=== PATIENT | female | born 1975 | race Caucasian/White ===

== ENCOUNTER 2020-08-19 14:39 | Outpatient (CLI) | payer BC, SELFPAY ==
--- NOTE | 2020-08-19 | ECHO_ITS ---
Patient Info Name: Martha Pires Age: 44 years : 1975 Gender: Female Ht: 70 in Wt: 160 lbs BSA: 1.89 m2 HR: 60 bpm BP: 128 / 78 mmHg Heart Rhythm: Sinus Rhythm Technical Quality: Good Exam Date: 08/19/2020 3:09 PM Exam Location: [facility] Patient Status: Outpatient Admit Date: 08/19/2020 Staff Ordering Physician: RoneyJohn MD Utility Hand: Shon Gallegos RDCS Attending Provider: RoneyJohn MD Exam Type: CA echo doppler color flow Study Info Indications I34.1 - Nonrheumatic mitral (valve) prolapse Complete two-dimensional, color flow and Doppler transthoracic echocardiogram is performed. Strain analysis performed. History/Risk Factors Mitral valve prolapse. Summary 1. Left ventricular systolic function is normal, estimated at 55-60%. 2. There is no increased left ventricular wall thickness. 3. The left ventricular diastolic function is normal. 4. Global longitudinal strain is normal at -19 %. 5. There is trace mitral valve regurgitation without evidence of mitral valve prolapse. 6. There is mild tricuspid valve regurgitation. 7. Unable to estimate PA systolic pressure due to poor spectral resolution of tricuspid regurgitant jet velocity. Left Ventricle Left ventricular chamber dimension is normal. Left ventricular systolic function is normal, estimated at 55-60%. There is no increased left ventricular wall thickness. The left ventricular diastolic function is normal. Global longitudinal strain is normal at -19 %. Right Ventricle Right ventricular chamber dimension is normal. Right ventricular systolic function is normal. Left Atria Left atrial chamber dimension is normal. Right Atria Right atrial chamber dimension is normal. Aortic Valve The aortic valve is not well visualized. There is no aortic valve stenosis. There is no aortic valve regurgitation. Pulmonic Valve The pulmonic valve is not well visualized. Mitral Valve The mitral valve has normal leaflets. There is trace mitral valve regurgitation without evidence of mitral valve prolapse. Tricuspid Valve The tricuspid valve leaflets are normal. There is mild tricuspid valve regurgitation. Unable to estimate PA systolic pressure due to poor spectral resolution of tricuspid regurgitant jet velocity. Pericardium/Pleural The pericardium appears normal. There is no pericardial effusion. Inferior Vena Cava Normal inferior vena cava with >50% collapse upon inspiration consistent with normal right atrial pressure, 5 mmHg. Aorta The aortic root size at the sinus of Valsalva is normal. Left Ventricular Outflow Tract Name Value Normal LVOT 2D LVOT Diameter 2.0 cm LVOT Doppler LVOT Peak Gradient 4 mmHg LVOT Mean Gradient 2 mmHg LVOT VTI 23 cm LVOT VTI/AV VTI Ratio 0.8 LVOT Stroke Volume 73 ml LVOT CO 4.5 l/min LVOT CI 2.4 l/min/m2 Mitral Valve --
== END 2020-08-19 14:40 | disposition home or self-care (01) ==
PROVIDERS: PCP Internal Medicine; Visit Provider Internal Medicine
DX: I34.1 Nonrheumatic mitral (valve) prolapse (principal)
CPT/HCPCS: 93306

== ENCOUNTER 2024-04-17 08:42 | Outpatient (CLI) | payer BC, SELFPAY ==
--- NOTE | 2024-04-17 | ECHO_ITS ---
Patient Info Name: Martha Pires Age: 48 years : 1975 Gender: Female Ht: 70 in Wt: 170 lbs BSA: 1.96 m2 HR: 54 bpm BP: 131 / 82 mmHg Heart Rhythm: Sinus Rhythm Technical Quality: Fair Exam Date: 04/17/2024 8:59 AM Exam Location: [facility] Patient Status: Outpatient Admit Date: 04/17/2024 Staff Ordering Physician: RoneyJohn MD Power Plant Operator Apprentice: Elvira Ortiz JOSEPH Attending Provider: CarloJohn MD Exam Type: CA echo doppler color flow Study Info Indications I34.1 - Nonrheumatic mitral (valve) prolapse Complete two-dimensional, color flow and Doppler transthoracic echocardiogram is performed. Summary 1. Complete two-dimensional, color flow and Doppler transthoracic echocardiogram is performed. 2. Left ventricular chamber dimension is normal. 3. Left ventricular systolic function is normal, estimated at 60-65%. 4. Right ventricular systolic function is normal. 5. There is mild tricuspid valve regurgitation. Left Ventricle Left ventricular chamber dimension is normal. Left ventricular systolic function is normal, estimated at 60-65%. There is no increased left ventricular wall thickness. The left ventricular diastolic function is normal. Right Ventricle Right ventricular chamber dimension is normal. Right ventricular systolic function is normal. Left Atria Left atrial chamber dimension is normal. Right Atria Right atrial chamber dimension is normal. Atrial Septum Intact interatrial septum visualized by color flow imaging. Aortic Valve The aortic valve is trileaflet. There is no aortic valve stenosis. There is no aortic valve regurgitation. Pulmonic Valve The pulmonic valve is not well visualized. There is trace pulmonic regurgitation. Mitral Valve The mitral valve has normal leaflets. There is trace mitral valve regurgitation. Tricuspid Valve There is mild tricuspid valve regurgitation. Pericardium/Pleural There is no pericardial effusion. Inferior Vena Cava Normal inferior vena cava with >50% collapse upon inspiration consistent with normal right atrial pressure, 3 mmHg. Aorta The aortic root size at the sinus of Valsalva is normal. Left Ventricular Outflow Tract Name Value Normal LVOT 2D LVOT Diameter 2.1 cm LVOT Doppler LVOT Peak Gradient 5 mmHg LVOT Mean Gradient 2 mmHg LVOT VTI 25 cm LVOT VTI/AV VTI Ratio 0.8 LVOT Stroke Volume 81 ml LVOT CO 4.4 l/min LVOT CI 2.3 l/min/m2 Pulmonic Valve Name Value Normal RVOT Doppler RVOT Peak Gradient 4 mmHg PV Doppler PV Peak Gradient 3 mmHg Mitral Valve Name
== END 2024-04-17 08:43 | disposition home or self-care (01) ==
LOC: ANHCARD 08:43
PROVIDERS: PCP Internal Medicine; Visit Provider Internal Medicine
DX: I34.1 Nonrheumatic mitral (valve) prolapse (principal); I36.1 Nonrheumatic tricuspid (valve) insufficiency
CPT/HCPCS: 93306

== ENCOUNTER 2025-09-10 07:23 | Outpatient (CLI) | payer BC, SELFPAY ==
--- NOTE | 2025-09-10 | ECHO_ITS ---
Patient Info Name: Martha Pires Age: 49 years : 1975 Gender: Female Ht: 70 in Wt: 173 lbs BSA: 1.98 m2 HR: 58 bpm BP: 117 / 82 mmHg Technical Quality: Good Exam Date: 09/10/2025 8:19 AM Patient Status: O Admit Date: 09/10/2025 Exam Type: CA echo doppler color flow Complete two-dimensional, color flow and Doppler transthoracic echocardiogram is performed. Mechanical System Technician: Osiris Luna Attending Provider: John Sim Summary 1. Complete two-dimensional, color flow and Doppler transthoracic echocardiogram is performed. 2. Left ventricular systolic function is normal, estimated at 60-65. 3. The left ventricular diastolic function is normal. 4. There is no mitral valve regurgitation. 5. The mitral valve has normal leaflets. 6. There is mild tricuspid valve regurgitation. 7. No pulmonary hypertension, estimated pulmonary arterial systolic pressure is 20 mmHg. Left Ventricle Left ventricular chamber dimension is normal. Left ventricular systolic function is normal, estimated at 60-65. There is no increased left ventricular wall thickness. Left ventricular septal wall motion is normal. The left ventricular diastolic function is normal. Right Ventricle Right ventricular chamber dimension is normal. Right ventricular systolic function is normal. Left Atria Left atrial chamber dimension is normal. Right Atria Right atrial chamber dimension is normal. Aortic Valve The aortic valve is trileaflet. There is no aortic valve sclerosis. There is no aortic valve stenosis. There is no aortic valve regurgitation. Pulmonic Valve The pulmonic valve is normal. There is no pulmonic valve stenosis. There is no pulmonic regurgitation. Mitral Valve The mitral valve has normal leaflets. There is no mitral valve stenosis. There is no mitral valve regurgitation. Tricuspid Valve The tricuspid valve leaflets are normal. There is no significant tricuspid valve stenosis. There is mild tricuspid valve regurgitation. No pulmonary hypertension, estimated pulmonary arterial systolic pressure is 20 mmHg. Pericardium/Pleural The pericardium appears normal. There is no pericardial effusion. Inferior Vena Cava Normal inferior vena cava with >50% collapse upon inspiration consistent with normal right atrial pressure, 5 mmHg. Aorta The aortic root size at the sinus of Valsalva is normal. The prox ascending aorta size is normal. Left Ventricular Outflow Tract Name Value Normal LVOT 2D LVOT Diameter 2.0 cm LVOT Doppler LVOT Peak Velocity 116 cm/s LVOT Peak Gradient 5 mmHg LVOT Mean Gradient 2 mmHg LVOT VTI 26 cm LVOT Stroke Volume 85 ml LVOT CO 4.9 l/min LVOT CI 2.5 l/min/m2 Pulmonic Valve Name Value Normal RVOT Doppler RVOT Peak Velocity 75 cm/s RVOT Peak Gradient 2 mmHg PV Doppler PV Peak Velocity 94 cm/s PV Peak Gradient 4 mmHg Mitral Valve Name Value Normal MV Diastolic Function MV E Peak Velocity 96 cm/s MV A Peak Velocity 67 cm/s MV E/A 1.4 MV Decel Time (PW) 230 ms MV Annular TDI MV E/e' (Septal) 13.7 MV E/e' (Lateral) 6.8 MV E/e' (Average) 10.2 Tricuspid Valve Name Value Normal TV Regurgitation Doppler TR Peak Velocity 192 cm/s TR Peak Gradient 15 mmHg Estimated PAP/RSVP RA Pressure 5 mmHg <=5 PA Systolic Pressure 20 mmHg <36 RV Systolic Pressure 20 mmHg <36 Aortic Valve Name Value Normal AV Doppler AV Peak Velocity 178 cm/s AV Peak Gradient 13 mmHg AV Area (Cont Eq Yoel) 2.1 cm2 AV DI (Yoel) 0.65 AV Regurgitation 2D LVOT Area 3.2 cm2 Ventricles Name Value Normal LV Dimensions 2D/MM IVS Diastolic Thickness (2D) 0.7 cm 0.6-1.0 LVID Diastole (2D) 4.7 cm 3.8-5.2 LVIW Diastolic Thickness (2D) 0.9 cm 0.6-0.9 LVID Systole (2D) 2.9 cm 2.2-3.5 LVOT Diameter 2.0 cm LV Mass (2D Cubed) 127.40 g 67.00-162.00 LV Mass Index (2D Cubed) 64 g/m2 43-95 Relative Wall Thickness (2D) 0.39 <=0.42 LV Fractional Shortening/Ejection Fraction 2D/MM LV Fractional Shortening (2D) 38 % 27-45 LV EF (2D Teichholz) 68 % LV Diastolic Volume (4C MOD) 110 ml LV EF (4C MOD) 64 % LV Diastolic Volume (2C MOD) 102 ml LV EF (2C MOD) 62 % LV Diastolic Volume (BP MOD) 106 ml 46-106 LV Diastolic Volume Index (BP MOD) 54 ml/m2 29-61 LV Systolic Volume (BP MOD) 40 ml 14-42 LV Systolic Volume Index (BP MOD) 20 ml/m2 8-24 LV EF (BP MOD) 62 % 54-74 LV Diastolic Length (4C) 8.3 cm LV Systolic Length (4C) 7.2 cm LV Stroke Volume (4C MOD) 70 ml Atria Name Value Normal LA Dimensions LA Volume (4C A-L) 33 ml LA Volume (BP A-L) 47 ml RA Dimensions RA Systolic Major [place] Length (4C) 5.2 cm 2.2-2.8 RA Area (4C) 16.3 cm2 <=18.0 Report Signatures
--- OUTSIDE RECORDS SUMMARY | 2025-09-10 07:27 | XMS_ITS | Data Portability ---
Author Organization [place] [facility], Main Office Address [address] [place] [address] Assessment Encounter Date Assessment Date Assessment LastModified by Organization Details LastModified Time 08/02/2023 08/02/2023 Healthy lifestyle choices colon cancer screening Cologuard was done 2021 blood work forms to be filled out for her employment immunizations and screenings have been discussed in order were agreeable and patient appropriate follow-up 1 year [email or web address] Not available 08/03/2023 14:07:23 Plan of Treatment Reminders Order Date Submit Date Provider Last Modified By Organization Details Last Modified Time Details Appointments None recorded . Lab CBC w/ auto diff 023 08/02/20 23 GRECIA Not available 3 13:14:22 CMP, serum or plasma 023 08/02/20 23 GRECIA Not available 3 13:23:33 lipid panel, serum 023 08/02/20 23 GRECIA Not available 3 13:23:38 HbA1c (hemoglo bin A1c), blood 023 08/02/20 23 [email or web address] Not available 4 18:35:49 Referral None recorded . Procedures None recorded . Surgeries None recorded . Imaging None recorded . Medication Orders None recorded . Patient TargetsNo targets recorded. Patient InstructionsNo instructions recorded. Reason for Referral None Reported. Results Created Date Observation Date Name Description Value Unit Range Abnormal Flag Note LastModifiedBy Organization Detail LastModifiedTime 08/06/20 22 08/06/2022 COMPR EHENS RAPHAEL METAB OLIC PANEL sodium 140 mmol/ L 137-14 5 Not Available [facility] (Lab) [address] [place], [address], 08/06/2022 13:09:52 10/28/20 22 08/06/2022 COMPR EHENS RAPHAEL METAB OLIC PANEL potassium 4.1 mmol/ L 3.5-5. 1 Not Available [facility] (Lab) [address] [place], [address], 08/06/2022 13:09:52 08/06/20 22 08/06/2022 COMPR EHENS RAPHAEL METAB OLIC PANEL chloride 104 mmol/ L 98-107 Not Available [facility] (Lab) [address] [place], [address], 08/06/2022 13:09:52 08/06/2008/06/2022 COMPR EHENS RAPHAEL METAB OLIC PANEL carbon dioxide 26 mmol/ L 22-30 Not Available [facility] (Lab) [address] [place], [address], 08/06/2022 13:09:52 08/06/2008/06/2022 COMPR EHENS RAPHAEL METAB OLIC PANEL anion gap 14.1 mmol/ L 14-22 Not Available [facility] (Lab) [address] [place], [address], 08/06/2022 13:09:52 08/06/20 22 08/06/2022 COMPR EHENS RAPHAEL METAB OLIC PANEL glucose 89 mg/dL 70-99 Not Available [facility] (Lab) [address] [place], [address], 08/06/2022 13:09:52 08/06/20 22 08/06/2022 COMPR EHENS RAPHAEL METAB OLIC PANEL BUN 14 mg/dL 8-19 Not Available [facility] (Lab) [address] [place], [address], 08/06/2022 13:09:52 08/06/20 22 08/06/2022 COMPR EHENS RAPHAEL METAB OLIC PANEL creatinine 0.79 mg/dL 0.66-1 .25 Not Available [facility] (Lab) [address] [place], [address], 08/06/2022 13:09:52 08/06/2008/06/2022 COMPR EHENS RAPHAEL METAB OLIC PANEL GFR >60 Refer ence Range : Duarte ge GFR Healt hy Adult : >60 mL/mi n/1.7 3 m2 Chron ic Kidne y Disea se: 15-60 mL/mi n/1.7 3 m2 Kidne y Failu re: <15/m L/min /1.73 m2 www.n iddk. nih.g ov The MDRD study equat ion has not been valid ated in child yordy <18 years of age; pregn ant women ; the elder ly >85 years of age; or in some racia l or ethni c subgr oups, such as Allan nics. Outsi de the valid ated dima eters , estim ated GFR is less accur ate, requi ring clini siri judgm ent on a case- by-ca se basis . Clini siri inter preta tion for other races and ages must be made by the clini geremias. The MDRD study equat ion has not been valid ated for the evalu ation of serum creat inine relat ed to nutri nilton l statu s or medic ation usage . For perso ns <18 years of age, a pedia tric GFR calcu lator is avail able on the [facility] websi te: https ://milton murray.reilly rg/pr ofess ional s/kdo qi/gf r_cal culat or Not Available [facility] (Lab) [address] [place], [address], 08/06/2022 13:09:52 08/06/20 22 08/06/2022 COMPR EHENS RAPHAEL METAB OLIC PANEL alkaline phosphatase 45 U/L 38-126 Not Available [facility] (Lab) [address] [place], [address], 08/06/2022 13:09:52 08/06/20 22 08/06/2022 COMPR EHENS RAPHAEL METAB OLIC PANEL alanine aminotransfe rase 11 U/L 0-35 Not Available [facility] (Lab) [address] [place], [address], 08/06/2022 13:09:52 08/06/20 22 08/06/2022 COMPR EHENS RAPHAEL METAB OLIC PANEL aspartate aminotransfe rase 20 U/L 15-37 Not Available [facility] (Lab) [address] [place], [address], 08/06/2022 13:09:52 08/06/20 22 08/06/2022 COMPR EHENS RAPHAEL METAB OLIC PANEL bilirubin, total 0.80 mg/dL 0.20-1 .30 Not Available [facility] (Lab) [address] [place], [address], 08/06/2022 13:09:52 08/06/2008/06/2022 COMPR EHENS RAPHAEL METAB OLIC PANEL calcium 9.4 mg/dL 8.4-10 .2 Not Available [facility] (Lab) [address] [place], [address], 08/06/2022 13:09:52 08/06/20 22 08/06/2022 COMPR EHENS RAPHAEL METAB OLIC PANEL total protein 7.3 g/dL 6.3-8. 2 Not Available [facility] (Lab) [address] [place], [address], 08/06/2022 13:09:52 08/06/20 22 08/06/2022 COMPR EHENS RAPHAEL METAB OLIC PANEL albumin 4.4 g/dL 3.4-5. 0 Not Available [facility] (Lab) [address] [place], [address], 08/06/2022 13:09:52 08/06/20 22 08/06/2022 COMPR EHENS RAPHAEL METAB OLIC PANEL globulin 2.9 g/dL 2.6-4. 2 Not Available [facility] (Lab) [address] [place], [address], 08/06/2022 13:09:52 08/06/2008/06/2022 COMPR EHENS RAPHAEL METAB OLIC PANEL A/G ratio 1.5 ratio 1.0-2. 0 Not Available [facility] (Lab) [address] [place], [address], 08/06/2022 13:09:52 08/06/2008/06/2022 LIPID PANEL cholesterol 188 mg/dL 140-19 9 NIH ROOPA NSUS RECOM MENDA TION FOR RACHELL STERO L: ADULT CHILD LOW RISK: <200 <170 BORDE RLINE : <200- 239 ----- HIGH RISK: >240 >200 Not Available [facility] (Lab) [address] [place], [address], 08/06/2022 13:09:46 08/06/20 22 08/06/2022 LIPID PANEL triglyceride s 77 mg/dL 0-150 NIH ROOPA NSUS REPOR T RECOM MENDA TION FOR TRIGL YCERI LARISSA: ADULT CHILD LOW RISK: <150 ----- BODER LINE: 150-1 99 ----- HIGH RISK: >200 ----- Not Available [facility] (Lab) [address] [place], [address], 08/06/2022 13:09:46 08/06/20 22 08/06/2022 LIPID PANEL HDL cholesterol 84 mg/dL 40- Not Available [facility] (Lab) [address] [place], [address], 08/06/2022 13:09:46 08/06/20 22 08/06/2022 LIPID PANEL LDL cholesterol, calculated 89 mg/dL 0-130 NIH ROOPA NSUS REPOR T RECOM MENDA TIONS FOR LDL: ADULT CHILD LOW RISK <130 <110 (OPTI MAL LDL) <100 ----- BORDE RLINE : 130-1 59 ----- HIGH RISK: >160 >130 A TRIGL YCERI DE RESUL T >400 INVAL IDATE S THE CALCU LATIO N FOR LDL FRACT IONAT ION - THE LDL RESUL T WILL NOT BE REPOR CHETNA. Not Available [facility] (Lab) [address] [place], [address], 08/06/2022 13:09:46 08/06/2008/06/2022 CBC/C OMPLE TE BLD COUNT W/DIF F red blood cells 4.18 x10'6 /uL 3.80-5 .20 Not Available [facility] (Lab) [address] [place], [address], 08/06/2022 13:00:41 08/06/20 22 08/06/2022 CBC/C OMPLE TE BLD COUNT W/DIF F hemoglobin 12.7 g/dL 12.0-1 5.6 Not Available [facility] (Lab) [address] [place], [address], 08/06/2022 13:00:41 08/06/20 22 08/06/2022 CBC/C OMPLE TE BLD COUNT W/DIF F hematocrit 39.7 % 35.7-4 5.7 Not Available [facility] (Lab) [address] [place], [address], 08/06/2022 13:00:41 08/06/2008/06/2022 CBC/C OMPLE TE BLD COUNT W/DIF F mean red cell volume 95.0 fL 82.0-9 9.0 Not Available [facility] (Lab) [address] [place], [address], 08/06/2022 13:00:41 08/06/20 22 08/06/2022 CBC/C OMPLE TE BLD COUNT W/DIF F mean red cell hemoglobin 30.4 pg 27.0-3 3.0 Not Available [facility] (Lab) [address] [place], [address], 08/06/2022 13:00:41 08/06/20 22 08/06/2022 CBC/C OMPLE TE BLD COUNT W/DIF F mean RBC HGB concentratio n 32.0 g/dL 31.0-3 6.0 Not Available [facility] (Lab) [address] [place], [address], 08/06/2022 13:00:41 08/06/20 22 08/06/2022 CBC/C OMPLE TE BLD COUNT W/DIF F red cell distribution width 12.0 % 11.8-1 5.5 Not Available [facility] (Lab) [address] [place], [address], 08/06/2022 13:00:41 08/06/20 22 08/06/2022 CBC/C OMPLE TE BLD COUNT W/DIF F platelets 282 x10'3 /uL 150-40 0 Not Available [facility] (Lab) [address] [place], [address], 08/06/2022 13:00:41 08/06/20 22 08/06/2022 CBC/C OMPLE TE BLD COUNT W/DIF F mean platelet volume 10.7 fL 9.0-12 .4 Not Available [facility] (Lab) [address] [place], [address], 08/06/2022 13:00:41 08/06/20 22 08/06/2022 CBC/C OMPLE TE BLD COUNT W/DIF F neutrophils 59.6 % 39.0-7 2.0 Not Available [facility] (Lab) [address] [place], [address], 08/06/2022 13:00:41 08/06/20 22 08/06/2022 CBC/C OMPLE TE BLD COUNT W/DIF F lymphocytes 26.8 % 16.0-4 7.0 Not Available [facility] (Lab) [address] [place], [address], 08/06/2022 13:00:41 08/06/20 22 08/06/2022 CBC/C OMPLE TE BLD COUNT W/DIF F monocytes 11.2 % 5.0-12 .0 Not Available [facility] (Lab) [address] [place], [address], 08/06/2022 13:00:41 08/06/20 22 08/06/2022 CBC/C OMPLE TE BLD COUNT W/DIF F eosinophils 1.2 % 1.0-7. 0 Not Available [facility] (Lab) [address] [place], [address], 08/06/2022 13:00:41 08/06/20 22 08/06/2022 CBC/C OMPLE TE BLD COUNT W/DIF F basophils 0.8 % 0.0-2. 0 Not Available [facility] (Lab) [address] [place], [address], 08/06/2022 13:00:41 08/06/20 22 08/06/2022 CBC/C OMPLE TE BLD COUNT W/DIF F immature granulocytes 0.4 % 0.00-0 .50 Not Available [facility] (Lab) [address] [place], [address], 08/06/2022 13:00:41 08/06/20 22 08/06/2022 CBC/C OMPLE TE BLD COUNT W/DIF F neutrophils, absolute count 2.87 x10'3 /uL 1.5-8. 0 Not Available [facility] (Lab) [address] [place], [address], 08/06/2022 13:00:41 08/06/20 22 08/06/2022 CBC/C OMPLE TE BLD COUNT W/DIF F lymphocytes, absolute count 1.29 x10'3 /uL 1.07-3 .43 Not Available [facility] (Lab) [address] [place], [address], 08/06/2022 13:00:41 08/06/2008/06/2022 CBC/C OMPLE TE BLD COUNT W/DIF F monocytes, absolute count 0.54 x10'3 /uL 0.29-0 .99 Not Available [facility] (Lab) [address] [place], [address], 08/06/2022 13:00:41 08/06/20 22 08/06/2022 CBC/C OMPLE TE BLD COUNT W/DIF F eosinophils, absolute count 0.06 x10'3 /uL 0.02-0 .53 Not Available [facility] (Lab) [address] [place], [address], 08/06/2022 13:00:41 08/06/20 22 08/06/2022 CBC/C OMPLE TE BLD COUNT W/DIF F basophils, absolute count 0.04 x10'3 /uL 0.01-0 .08 Not Available [facility] (Lab) [address] [place], [address], 08/06/2022 13:00:41 08/06/20 22 08/06/2022 CBC/C OMPLE TE BLD COUNT W/DIF F immature granulocytes ,absolute 0.02 x10'3 /uL 0.00-0 .05 Not Available [facility] (Lab) [address] [place], [address], 08/06/2022 13:00:41 08/06/20 22 08/06/2022 CBC/C OMPLE TE BLD COUNT W/DIF F nucleated red blood cells 0.0 % -0 Not Available [facility] (Lab) [address] [place], [address], 08/06/2022 13:00:41 08/06/20 22 08/06/2022 CBC/C OMPLE TE BLD COUNT W/DIF F NRBC# 0.00 x10'3 /uL Not Available [facility] (Lab) [address] [place], [address], 08/06/2022 13:00:41 08/06/20 22 08/06/2022 CBC/C OMPLE TE BLD COUNT W/DIF F white blood cells 4.8 x10'3 /uL 4.2-10 .8 Not Available [facility] (Lab) [address] [place], [address], 08/06/2022 13:00:41 08/19/20 22 08/19/2022 COLOG UARD cologuard result reportable negati ve negati ve NEGAT RAPHAEL TEST RESUL T. A negat raphael Colog uard resul t indic ates a low likel ihood that a color ectal cance r (CRC) or advan sai adeno ma (sivan omato us polyp s with more advan sai pre-m align ant featu res) is prese nt. The [facility] e that a perso n with a negat raphael Colog uard test has a color ectal cance r is less than 1 in 1500 (nega tive predi ctive value >99.9 %) or has an advan sai adeno ma is less than 5.3% (nega tive predi ctive value 94.7% ). These data are based on a prosp ectiv e cross -sect ional study of 0 indiv idual s at [facility] risk for color ectal cance r who were scree lobo with both Colog uard and colon oscop y. (All mckinley TAnnamarie et al, N Engl J Med 2014; 370(1 4):12 86-12 97) The emily l value (refe rence range ) for this assay is negat raphael. COLOG UARD RE-SC REENI NG RECOM MENDA TION: Perio dic color ectal cance r scree naomy is an impor tant part of preve ntive healt hcare for asymp tomat ic indiv idual s at avera ge risk for color ectal cance r. Follo wing a negat raphael Colog uard resul t, the Ameri can Cance r Socie ty and U.S. Multi -Soci ety Task Force scree naomy guide lines recom mend a Colog uard re-sc dayne pascual inter marcia of 3 years . Refer ences : Ameri can Cance r Socie ty Guide line for Color ectal Cance r Scree naomy: https ://milton w.can cer.o rg/ca ncer/ colon -rect al-ca ncer/ detec tion- diagn osis- stagi ng/ac s-rec ommen datio ns.ht ml.; Frederic FISHER, Juan José WYNNE, Maria Del Rosario MAYER, Color ectal Cance r Scree naomy: Recom menda tions for Physi cians and Patie nts from the U.S. Multi -Soci ety Task Force on Color ectal Cance r Scree naomy , Am Paola Gastr osorio farfan y 2017; 112:1 016-1 030. TEST DESCR IPTIO N: Modale site algor ithmi c roro sis of stool DNA-b ioike woods with hemog lobin immun oassa y. Quant itati ve value s of indiv idual bioma rkers are not repor table and are not assoc iated with indiv idual bioma rker resul t refer ence range s. Colog uard is inten ded for color ectal cance r scree naomy of adult s of eithe r sex, 45 years or older , who are at [facility] for color ectal cance r (CRC) . Colog uard has been appro claudia for use by the U.S. FDA. The perfo rmanc e of Colog uard was estab lishe d in a cross secti onal study of [facility] adult s aged 50-84 . Colog uard perfo rmanc e in patie nts ages 45 to 49 years was estim ated by sub-g roup roro sis of near- age group s. Colon oscop ies perfo rmed for a posit raphael resul t may find as the most clini erika signi fican t lesio n: color ectal cance r [4.0% ], advan sai adeno ma (incl uding sessi le nitin chetna polyp s great er than or equal to 1cm diame ter) [20%] or non- advan sai adeno ma [31%] ; or no color ectal neopl moody [45%] . These estim ates are deriv ed from a prosp ectiv e cross -sect ional stefan zavalag study of 0 indiv idual s at [facility] risk for color ectal cance r who were scree lobo with both Colog uard and colon oscop y. (All Mcclellan et al, N Engl J Med 2014; 370(1 4):12 86-12 97.) Colog uard may produ ce a false negat raphael or false posit raphael resul t (no color ectal cance r or preca ncero us polyp prese nt at colon oscop y follo w up). A negat raphael Colog uard test resul t does not guara ntee the absen ce of CRC or advan sai adeno ma (pre- cance r). The curre nt Colog uard scree naomy inter marcia is every 3 years . (Amer ican Cance r Socie ty and U.S. Multi -Soci ety Task Force ). Colog uard perfo rmanc e data in a 0 patie nt pivot al study using colon oscop y as the refer ence metho d can be acces sed at the follo wing locat ion: www.e xactl abs.c om/re jarad . Addit ional descr iptio n of the Colog uard test proce ss, warni ngs and preca ution s can be found at www.c janineu flavoi.c om. Not Available [facility] [address], [place], [address], 08/25/2022 21:03:28 08/02/20 23 08/02/2023 CBC/C OMPLE TE BLD COUNT W/DIF F white blood cells 4.9 x10'3 /uL 4.2-10 .8 Not Available [facility] (Lab) [address] [place], [address], 08/02/2023 13:14:22 08/02/20 23 08/02/2023 CBC/C OMPLE TE BLD COUNT W/DIF F red blood cells 3.96 x10'6 /uL 3.80-5 .20 Not Available [facility] (Lab) [address] [place], [address], 08/02/2023 13:14:22 08/02/20 23 08/02/2023 CBC/C OMPLE TE BLD COUNT W/DIF F hemoglobin 12.5 g/dL 12.0-1 5.6 Not Available [facility] (Lab) [address] [place], [address], 08/02/2023 13:14:22 08/02/20 23 08/02/2023 CBC/C OMPLE TE BLD COUNT W/DIF F hematocrit 38.0 % 35.7-4 5.7 Not Available [facility] (Lab) [address] [place], [address], 08/02/2023 13:14:22 08/02/2008/02/2023 CBC/C OMPLE TE BLD COUNT W/DIF F mean red cell volume 96.0 fL 82.0-9 9.0 Not Available [facility] (Lab) [address] [place], [address], 08/02/2023 13:14:22 08/02/20 23 08/02/2023 CBC/C OMPLE TE BLD COUNT W/DIF F mean red cell hemoglobin 31.6 pg 27.0-3 3.0 Not Available [facility] (Lab) [address] [place], [address], 08/02/2023 13:14:22 08/02/20 23 08/02/2023 CBC/C OMPLE TE BLD COUNT W/DIF F mean RBC HGB concentratio n 32.9 g/dL 31.0-3 6.0 Not Available [facility] (Lab) [address] [place], [address], 08/02/2023 13:14:22 08/02/2008/02/2023 CBC/C OMPLE TE BLD COUNT W/DIF F red cell distribution width 12.0 % 11.8-1 5.5 Not Available [facility] (Lab) [address] [place], [address], 08/02/2023 13:14:22 08/02/20 23 08/02/2023 CBC/C OMPLE TE BLD COUNT W/DIF F platelets 278 x10'3 /uL 150-40 0 Not Available [facility] (Lab) [address] [place], [address], 08/02/2023 13:14:22 08/02/2008/02/2023 CBC/C OMPLE TE BLD COUNT W/DIF F mean platelet volume 10.7 fL 9.0-12 .4 Not Available [facility] (Lab) [address] [place], [address], 08/02/2023 13:14:22 08/02/2008/02/2023 CBC/C OMPLE TE BLD COUNT W/DIF F neutrophils 60.1 % 39.0-7 2.0 Not Available [facility] (Lab) [address] [place], [address], 08/02/2023 13:14:22 08/02/20 23 08/02/2023 CBC/C OMPLE TE BLD COUNT W/DIF F lymphocytes 28.8 % 16.0-4 7.0 Not Available [facility] (Lab) [address] [place], [address], 08/02/2023 13:14:22 08/02/20 23 08/02/2023 CBC/C OMPLE TE BLD COUNT W/DIF F monocytes 8.5 % 5.0-12 .0 Not Available [facility] (Lab) [address] [place], [address], 08/02/2023 13:14:22 08/02/2008/02/2023 CBC/C OMPLE TE BLD COUNT W/DIF F eosinophils 1.6 % 1.0-7. 0 Not Available [facility] (Lab) [address] [place], [address], 08/02/2023 13:14:22 08/02/20 23 08/02/2023 CBC/C OMPLE TE BLD COUNT W/DIF F basophils 0.8 % 0.0-2. 0 Not Available [facility] (Lab) [address] [place], [address], 08/02/2023 13:14:22 08/02/2008/02/2023 CBC/C OMPLE TE BLD COUNT W/DIF F immature granulocytes 0.2 % 0.00-0 .50 Not Available [facility] (Lab) [address] [place], [address], 08/02/2023 13:14:22 08/02/20 23 08/02/2023 CBC/C OMPLE TE BLD COUNT W/DIF F neutrophils, absolute count 2.96 x10'3 /uL 1.5-8. 0 Not Available [facility] (Lab) [address] [place], [address], 08/02/2023 13:14:22 08/02/20 23 08/02/2023 CBC/C OMPLE TE BLD COUNT W/DIF F lymphocytes, absolute count 1.42 x10'3 /uL 1.07-3 .43 Not Available [facility] (Lab) [address] [place], [address], 08/02/2023 13:14:22 08/02/20 23 08/02/2023 CBC/C OMPLE TE BLD COUNT W/DIF F monocytes, absolute count 0.42 x10'3 /uL 0.29-0 .99 Not Available [facility] (Lab) [address] [place], [address], 08/02/2023 13:14:22 08/02/20 23 08/02/2023 CBC/C OMPLE TE BLD COUNT W/DIF F eosinophils, absolute count 0.08 x10'3 /uL 0.02-0 .53 Not Available [facility] (Lab) [address] [place], [address], 08/02/2023 13:14:22 08/02/2008/02/2023 CBC/C OMPLE TE BLD COUNT W/DIF F basophils, absolute count 0.04 x10'3 /uL 0.01-0 .08 Not Available [facility] (Lab) [address] [place], [address], 08/02/2023 13:14:22 08/02/20 23 08/02/2023 CBC/C OMPLE TE BLD COUNT W/DIF F immature granulocytes ,absolute 0.01 x10'3 /uL 0.00-0 .05 Not Available [facility] (Lab) [address] [place], [address], 08/02/2023 13:14:22 08/02/20 23 08/02/2023 CBC/C OMPLE TE BLD COUNT W/DIF F nucleated red blood cells 0.0 % -0 Not Available [facility] (Lab) [address] [place], [address], 08/02/2023 13:14:22 08/02/20 23 08/02/2023 CBC/C OMPLE TE BLD COUNT W/DIF F NRBC# 0.00 x10'3 /uL Not Available [facility] (Lab) [address] [place], [address], 08/02/2023 13:14:22 08/02/20 23 08/02/2023 COMPR EHENS RAPHAEL METAB OLIC PANEL sodium 138 mmol/ L 137-14 5 Not Available [facility] (Lab) [address] [place], [address], 08/02/2023 13:23:33 08/02/20 23 08/02/2023 COMPR EHENS RAPHAEL METAB OLIC PANEL potassium 4.2 mmol/ L 3.5-5. 1 Not Available [facility] (Lab) [address] [place], [address], 08/02/2023 13:23:33 08/02/20 23 08/02/2023 COMPR EHENS RAPHAEL METAB OLIC PANEL chloride 105 mmol/ L 98-107 Not Available [facility] (Lab) [address] [place], [address], 08/02/2023 13:23:33 08/02/20 23 08/02/2023 COMPR EHENS RAPHAEL METAB OLIC PANEL carbon dioxide 27 mmol/ L 22-30 Not Available [facility] (Lab) [address] [place], [address], 08/02/2023 13:23:33 08/02/20 23 08/02/2023 COMPR EHENS RAPHAEL METAB OLIC PANEL anion gap 10.2 mmol/ L 14-22 low Not Available [facility] (Lab) [address] [place], [address], 08/02/2023 13:23:33 08/02/20 23 08/02/2023 COMPR EHENS RAPHAEL METAB OLIC PANEL glucose 95 mg/dL 70-99 Not Available [facility] (Lab) [address] [place], [address], 08/02/2023 13:23:33 08/02/20 23 08/02/2023 COMPR EHENS RAPHAEL METAB OLIC PANEL BUN 14 mg/dL 8-19 Not Available [facility] (Lab) [address] [place], [address], 08/02/2023 13:23:33 08/02/2008/02/2023 COMPR EHENS RAPHAEL METAB OLIC PANEL creatinine 0.82 mg/dL 0.66-1 .25 Not Available [facility] (Lab) [address] [place], [address], 08/02/2023 13:23:33 08/02/20 23 08/02/2023 COMPR EHENS RAPHAEL METAB OLIC PANEL GFR >60 Refer ence Range : Duarte ge GFR Healt hy Adult : >60 mL/mi n/1.7 3 m2 Chron ic Kidne y Disea se: 15-60 mL/mi n/1.7 3 m2 Kidne y Failu re: <15/m L/min /1.73 m2 www.n iddk. nih.g ov The MDRD study equat ion has not been valid ated in child yordy <18 years of age; pregn ant women ; the elder ly >85 years of age; or in some racia l or ethni c subgr oups, such as Hisnh nics. Outsi de the valid ated dima eters , estim ated GFR is less accur ate, requi ring clini siri judgm ent on a case- by-ca se basis . Clini siri inter preta tion for other races and ages must be made by the clini geremias. The MDRD study equat ion has not been valid ated for the evalu ation of serum creat inine relat ed to nutri nilton l statu s or medic ation usage . For perso ns <18 years of age, a pedia tric GFR calcu lator is avail able on the F websi te: https :[email or web address] [email or web address] harlan/pr glenness ional s/kdo qi/gf r_cal culat or Not Available [facility] (Lab) [address] [place], [address], 08/02/2023 13:23:33 08/02/2008/02/2023 COMPR EHENS RAPHAEL METAB OLIC PANEL alkaline phosphatase 39 U/L 38-126 Not Available [facility] (Lab) [address] [place], [address], 08/02/2023 13:23:33 08/02/20 23 08/02/2023 COMPR EHENS RAPHAEL METAB OLIC PANEL alanine aminotransfe rase 14 U/L 0-35 Not Available [facility] (Lab) [address] [place], [address], 08/02/2023 13:23:33 08/02/20 23 08/02/2023 COMPR EHENS RAPHAEL METAB OLIC PANEL aspartate aminotransfe rase 21 U/L 15-37 Not Available [facility] (Lab) [address] [place], [address], 08/02/2023 13:23:33 08/02/20 23 08/02/2023 COMPR EHENS RAPHAEL METAB OLIC PANEL bilirubin, total 0.70 mg/dL 0.20-1 .30 Not Available [facility] (Lab) [address] [place], [address], 08/02/2023 13:23:33 08/02/20 23 08/02/2023 COMPR EHENS RAPHAEL METAB OLIC PANEL calcium 9.7 mg/dL 8.4-10 .2 Not Available [facility] (Lab) [address] [place], [address], 08/02/2023 13:23:33 08/02/20 23 08/02/2023 COMPR EHENS RAPHAEL METAB OLIC PANEL total protein 7.1 g/dL 6.3-8. 2 Not Available [facility] (Lab) [address] [place], [address], 08/02/2023 13:23:33 08/02/20 23 08/02/2023 COMPR EHENS RAPHAEL METAB OLIC PANEL albumin 4.3 g/dL 3.4-5. 0 Not Available [facility] (Lab) [address] [place], [address], 08/02/2023 13:23:33 08/02/2008/02/2023 COMPR EHENS RAPHAEL METAB OLIC PANEL globulin 2.8 g/dL 2.6-4. 2 Not Available [facility] (Lab) [address] [place], [address], 08/02/2023 13:23:33 08/02/2008/02/2023 COMPR EHENS RAPHAEL METAB OLIC PANEL A/G ratio 1.5 ratio 1.0-2. 0 Not Available [facility] (Lab) [address] [place], [address], 08/02/2023 13:23:33 08/02/2008/02/2023 LIPID PANEL cholesterol 180 mg/dL 140-19 9 NIH ROOPA NSUS RECOM MENDA TION FOR RACHELL STERO L: ADULT CHILD LOW RISK: <200 <170 BORDE RLINE : <200- 239 ----- HIGH RISK: >240 >200 Not Available [facility] (Lab) [address] [place], [address], 08/02/2023 13:23:38 08/02/2008/02/2023 LIPID PANEL triglyceride s 72 mg/dL 0-150 NIH ROOPA NSUS REPOR T RECOM MENDA TION FOR TRIGL YCERI LARISSA: ADULT CHILD LOW RISK: <150 ----- BODER LINE: 150-1 99 ----- HIGH RISK: >200 ----- Not Available [facility] (Lab) [address] [place], [address], 08/02/2023 13:23:38 08/02/2008/02/2023 LIPID PANEL HDL cholesterol 78 mg/dL 40- Not Available [facility] (Lab) [address] [place], [address], 08/02/2023 13:23:38 08/02/20 23 08/02/2023 LIPID PANEL LDL cholesterol, calculated 88 mg/dL 0-130 NIH ROOPA NSUS REPOR T RECOM MENDA TIONS FOR LDL: ADULT CHILD LOW RISK <130 <110 (OPTI MAL LDL) <100 ----- BORDE RLINE : 130-1 59 ----- HIGH RISK: >160 >130 A TRIGL YCERI DE RESUL T >400 INVAL IDATE S THE CALCU LATIO N FOR LDL FRACT IONAT ION - THE LDL RESUL T WILL NOT BE REPOR CHETNA. Not Available [facility] (Lab) [address] [place], [address], 08/02/2023 13:23:38 08/02/2008/02/2023 HEMOG LOBIN A1C HA1C 5.1 % 4.0-6. 0 Diabe gabrielle Scree naomy Crite giovani: <5.7% Consi stent with absen ce of diabe gabrielle 5.7-6 .4% Consi stent with incre ased risk for diabe gabrielle (pred iabet es) >OR=6 .5% Consi stent with diabe gabrielle REFER ENCE: Diabe gabrielle Care 2016, 39([place] ppl.1 ):s13 -s22 Not Available [facility] (Lab) [address] [place], [address], 08/02/2023 15:06:07 Result Notes None recorded. 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 Medical Equipment None Reported. Allergies Allergen ID Allergen Name Allergen Category Reaction Reaction Severity Criticality Documentation Date Start Date Code Code System Note Provider Name and Address Organization Details Recorded Time 15866 Substance with sulfonami de structure and antibacte rial mechanism of action (substanc e) medicatio n Not available Not available Not available 12/08/2022 03394 8003 SNOMED Not Available [facility] 3 22:24:42 Medications Name Sig Start Date Stop Date Status Note LastModified by Organization Details LastModified Time amoxicillin 875 mg tablet 2019 completed Not Available Not Available Not Available Vitamin C 022 2022 completed Not Available Not Available Not Available Vitals Date Recorded Body height Body mass index (BMI) Body weight Body temperature Heart rate Systolic And Diastolic Provider Name and Address Organization Details Last Updated DateTime 3 177.8 cm 24.1 kg/m2 93201.5 2 g 98.1 [degF] 62 /min 104/68 mm[Hg] Teresa bean RN [place] [employer] [facility] 3 10:42:16 Date Recorded Body mass index (BMI) Body height Heart rate Body temperature Body weight Systolic And Diastolic Provider Name and Address Organization Details Last Updated DateTime 2 23.8 kg/m2 177.8 cm 65 /min 98.4 [degF] 65785.3 3 g 118/76 mm[Hg] Not Available [facility] 3 22:23:42 Social History Question Answer Notes LastModified by Organizat ion Details LastModified Time Tobacco Smoking Status Never Smoker Not Available [facility] 12/08/2022 22:23:01 Do You Have An Advance Directive? Yes Living Will MIGRATION. [id number] Information not available 12/08/2022 What Is Your Level Of Caffeine Consumption? Occasional MIGRATION. 29481 Information not available 12/08/2022 In The 14 Days Before Symptom Onset, Have You Had Close Contact With A Laboratory-confi rmed COVID-19 While That Case Was Ill? No MIGRATION. 14497 Information not available 12/08/2022 In The 14 Days Before Symptom Onset, Have You Had Close Contact With A Person Who Is Under Investigation For COVID-19 While That Person Was Ill? No MIGRATION. 17411 Information not available 12/08/2022 What Type Of Diet Are You Following? REGULAR MIGRATION. 76030 Information not available 12/08/2022 What Is The Highest Grade Or Level Of School You Have Completed Or The Highest Degree You Have Received? KP64152-1 MIGRATION. 01035 Information not available 12/08/2022 How Many Days Of Moderate To Strenuous Exercise, Like A Brisk Walk, Did You Do In The Last 7 Days? 5 MIGRATION. 77120 Information not available 12/08/2022 Have There Been Any Changes To Your Family Or Social Situation? No MIGRATION.90951 16554 Information not available 12/08/2022 Are There Any Guns Present In Your Home? Yes MIGRATION.35666 31098 Information not available 12/08/2022 Do You Use Insect Repellent Routinely? Yes MIGRATION.45284 69382 Information not available 12/08/2022 Where Do You Live? [facility] MIGRATION.37739 76108 Information not available 12/08/2022 Do You Have A Medical Power Of Fork Truck Operator? No MIGRATION.94838 31376 Information not available 12/08/2022 What Was The Date Of Your Most Recent Tobacco Screening? 08/02/2023 Information not available 08/02/2023 Have You Ever Been Counseled For Unhealthy Alcohol Use? No MIGRATION.23011 72340 Information not available 12/08/2022 Do You Have Any Pets? Yes MIGRATION.01543 49155 Information not available 12/08/2022 What Is Your Relationship Status? MIGRATION.66271 20400 Information not available 12/08/2022 Do You Have Smoke And Carbon Monoxide Detectors In Your Home? Yes MIGRATION.12865 15238 Information not available 12/08/2022 Are You Passively Exposed To Smoke? No MIGRATION.03335 79102 Information not available 12/08/2022 Are There Any Smokers In Your House? No MIGRATION.34834 80650 Information not available 12/08/2022 Do You Use Sunscreen Routinely? Yes MIGRATION.16236 15447 Information not available 12/08/2022 Has Tobacco Cessation Counseling Been Provided? No MIGRATION.92590 51798 Information not available 12/08/2022 Have You Recently Traveled Abroad? No MIGRATION.54487 86483 Information not available 12/08/2022 Do You Have Any Dietary Restrictions? No MIGRATION.12795 32981 Information not available 12/08/2022 Sex: Unknown Functional Status Question Answer Note LastModified by Organizat ion Details LastModified Time Do you use any illicit or recreational drugs? No MIGRATION.050526 3066 Information not available 12/08/2022 Do you or have you ever used any other forms of tobacco or nicotine? No MIGRATION.901181 6440 Information not available 12/08/2022 What is your level of alcohol consumption? Occasional MIGRATION.578030 8269 Information not available 12/08/2022 Are you currently employed? 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 Moderate MIGRATION.545164 4383 Information not available 12/08/2022 Mental Status Question Answer Note LastModified by Organizat ion Details LastModified Time Do you feel stressed (tense, restless, nervous, or anxious, or unable to sleep at night)? [id number] MIGRATION.[id number] 6 Information not available 12/08/2022 Family History Relationship Description Onset Age of this Age Resolved Age Notes LastModified by Organization Details LastModified Time Father No current problems or disability MIGRATION.[id number] Not available 12/08/2022 22:23:07 Mother No current problems or disability MIGRATION.[id number] Not available 12/08/2022 22:23:07 Medical History Condition Response HAVE YOU BEEN HOSPITALIZED OR SEEN IN [facility] IN THE PAST YEAR ? N Gynecological HistoryNo gynecological history recorded. Obstetrics History GPAL:G 0 P 0 0 0 0 Immunizations Vaccine Type Date Status Note Provider Nam e and Address Organization Details Recorded Time COVID-19, mRNA, LNP-S, PF, 30 mcg/0.3 mL dose 09/28/2021 completed Not Available [facility] 3 02:31:47 COVID-19, mRNA, LNP-S, PF, 30 mcg/0.3 mL dose 01/29/2021 completed Not Available [facility] 3 02:31:47 COVID-19, mRNA, LNP-S, PF, 30 mcg/0.3 mL dose 01/05/2021 completed Not Available [facility] 3 02:31:47 Past Encounters Encounter ID Performer Location Encounter Start Date Encounter Closed Date Diagnosis/Indication Diagnosis SNOMED-CT Code Diagnosis ICD10 Code Diagnosis IMO Codes Diagnosis Note [id number] John Sim MD [facility] [place] [address] [facility], [address] [place] [address] 08/06/2022 00:00:00 08/07/2022 14:11:32 [id number] John Sim MD [facility] [place] [facility] Med [address] [place] [address] 08/02/2023 10:34:07 08/02/2023 11:02:02 Adult health examination 062227100 Z00.00 Health Concerns Section Related Observation LastModified by Organization Detai ls LastModified Time None Recorded Concern Status LastModified by Organization Details LastModified Time None Recorded Advance Directives Directive Y: living will Payers Insurance Date Sequence Insurance Name Policy Number Policy Javed Covered Member ID Javed Member ID Guarantor Name 07/30/2023 1 [employer] [id number] Viraj Pires [id number] Martha Pires 01/18/2023 [facility] Martha Pires SELF SELF Martha Pires Notes Date Note Type Note Provider Name and Address Organization Details Recorded Time 08/02/2023 text/html annual physical very active doing well no complaints John Sim MD [address] [facility] [address], [place], [address], [facility] [place] [facility] 08/03/2023 14:07:44 OBGyn Episode No OBEpisode recorded.
--- OUTSIDE RECORDS SUMMARY | 2025-09-10 07:27 | XMS_ITS | Data Portability ---
Author Organization [facility] Address [address] [place] [address] Care Team Providers Care Call Center Dispatcher Name Role Phone JOHN SIM Primary Care Provider Unavailabl e Assessment Encounter Date Assessment Date Assessment LastModified by Organization Details LastModified Time 03/19/2024 03/19/2024 Echocardiogram blood work get old records she believes she is up-to-date with Cologuard see me in a year. She will see her loading rack supervisor for her yearly as well [email or web address] Not available 03/28/2024 16:13:00 08/26/2025 08/26/2025 We will get echo or CT and echo depending upon what she finds out specifically on what mother's having done otherwise healthy lifestyle choices discussed blood work and she will see me in a year she will get a Cologuard and she follows up with mammograms and poultry farmer care with another provider [email or web address] Not available 08/26/2025 20:52:06 Plan of Treatment Reminders Order Date Submit Date Provider Last Modified By Organization Details Last Modified Time Details Appointments ANY 15 2025 09:30A Santiago Sim MD Not available Not available Not available Lab CMP, serum or plasma 2024 025 [facility], [address], [address], [place], [address], 08/31/2025 09:09:19 lipid panel, serum 2024 025 [facility], [address], [address], [place], [address], 08/31/2025 09:09:19 CBC w/ auto diff 2024 025 [facility], [address], [address], [place], [address], 08/31/2025 09:09:20 CBC w/ auto diff 2023 024 [facility], [address] [place] [address], [address], [place], [address], 03/21/2024 16:55:15 CMP, serum or plasma 2023 024 [facility], [address] [place] [address], [address], [place], [address], 03/21/2024 16:55:15 lipid panel, serum 2023 024 [facility], [address] [place] [address], [address], [place], [address], 03/21/2024 16:55:15 Referral None recorded. Procedures None recorded. Surgeries None recorded. Imaging US, echocardi ogram 2024 025 [facility] ([facility]), [address] [place] [address], [address], 08/28/2025 09:50:39 US, echocardi ogram 2023 024 [facility] ([facility]), [address] [place] [address] [address], [place], [address], 04/17/2024 18:59:06 Medication Orders None recorded. Patient TargetsNo targets recorded. Patient Instructions Encounter Date Encounter Id Patient Instructions Last Modified By Organization Details Last Modified Time 08/26/2025 [id number] A healthy lifestyle: care instructions [email or web address] Not available 08/26/2025 15:28:54 Reason for Referral None Reported. Results Created Date Observation Date Name Description Value Unit Range Abnormal Flag Note LastModifiedBy Organization Detail LastModifiedTime 02/20/20 25 02/19/2025 pap, IG + HR HPV Pap, HPV positi ve Not Available Not Available 15:49:07 08/30/20 25 08/31/2025 LIPID PANEL cholesterol, total 184 mg/dL 100-19 9 Not Available [facility] ([facility]) [address] [place], [address], 08/31/2025 09:09:18 08/30/20 25 08/31/2025 LIPID PANEL triglyceride s 80 mg/dL 0-149 Not Available [facility] ([facility] [address] [place], [address], 08/31/2025 09:09:18 08/30/20 25 08/31/2025 LIPID PANEL HDL cholesterol 63 mg/dL >39 Not Available [facility] ([facility] [address] [place], [address], 08/31/2025 09:09:18 08/30/20 25 08/31/2025 LIPID PANEL VLDL cholesterol siri 15 mg/dL 5-40 Not Available [facility] ([facility] [address] [place], [address], 08/31/2025 09:09:18 08/30/20 25 08/31/2025 LIPID PANEL LDL chol calc ([facility]) 106 mg/dL 0-99 above high normal Not Available [facility] ([facility] [address] [place], [address], 08/31/2025 09:09:18 08/30/20 25 08/31/2025 COMP. METAB OLIC PANEL (14) glucose 88 mg/dL 70-99 Not Available [facility] ([facility] [address] [place], [address], 08/31/2025 09:09:19 08/30/20 25 08/31/2025 COMP. METAB OLIC PANEL (14) BUN 15 mg/dL 6-24 Not Available [facility] ([facility] [address] [facility] [place], [address], 08/31/2025 09:09:19 08/30/20 25 08/31/2025 COMP. METAB OLIC PANEL (14) creatinine 0.98 mg/dL 0.57-1 .00 Not Available [facility] ([facility] [address] [facility] [place], [address], 08/31/2025 09:09:19 08/30/20 25 08/31/2025 COMP. METAB OLIC PANEL (14) eGFR 70 mL/mi n/1.7 3 >59 Not Available [facility] ([facility] [place] [facility] [address] [facility] [place], [address], 08/31/2025 09:09:19 08/30/20 25 08/31/2025 COMP. METAB OLIC PANEL (14) BUN/creatini ne ratio 15 9-23 Not Available [facility] ([facility] [place] [facility] [address] [facility] [place], [address], 08/31/2025 09:09:19 08/30/20 25 08/31/2025 COMP. METAB OLIC PANEL (14) sodium 142 mmol/ L 134-14 4 Not Available [facility] ([facility] [place] [facility] [address] [facility] [place], [address], 08/31/2025 09:09:19 08/30/20 25 08/31/2025 COMP. METAB OLIC PANEL (14) potassium 4.6 mmol/ L 3.5-5. 2 Not Available [facility] ([facility] [place] [facility] [address] [facility] [place], [address], 08/31/2025 09:09:19 08/30/20 25 08/31/2025 COMP. METAB OLIC PANEL (14) chloride 105 mmol/ L 96-106 Not Available [facility] ([facility] [place] [facility] [address] [facility] [place] [place], [address], 08/31/2025 09:09:19 08/30/20 25 08/31/2025 COMP. METAB OLIC PANEL (14) carbon dioxide, total 23 mmol/ L 20-29 Not Available [facility] ([facility] [place] [facility] [address] [facility] [place], [address], 08/31/2025 09:09:19 08/30/20 25 08/31/2025 COMP. METAB OLIC PANEL (14) calcium 9.6 mg/dL 8.7-10 .2 Not Available [facility] ([facility] [place] [facility] [address] [facility] [place], [address], 08/31/2025 09:09:19 08/30/2008/31/2025 COMP. METAB OLIC PANEL (14) protein, total 7.1 g/dL 6.0-8. 5 Not Available [facility] ([facility] [place] [facility] [address] [facility] [place], [address], 08/31/2025 09:09:19 08/30/20 25 08/31/2025 COMP. METAB OLIC PANEL (14) albumin 4.4 g/dL 3.8-4. 9 Not Available [facility] ([facility] [place] [facility] [address] [facility] [place], [address], 08/31/2025 09:09:19 08/30/20 25 08/31/2025 COMP. METAB OLIC PANEL (14) globulin, total 2.7 g/dL 1.5-4. 5 Not Available [facility] ([facility] [place] [facility] [address] [facility] [place], [address], 08/31/2025 09:09:19 08/30/20 25 08/31/2025 COMP. METAB OLIC PANEL (14) bilirubin, total 0.6 mg/dL 0.0-1. 2 Not Available [facility] ([facility] [place] [place] [facility] [address] [facility] [place], [address], 08/31/2025 09:09:19 08/30/20 25 08/31/2025 COMP. METAB OLIC PANEL (14) alkaline phosphatase 43 IU/L 49-135 below low normal Not Available [facility] ([facility] [place] [facility] [address] [facility], [place], [address], 08/31/2025 09:09:19 08/30/2008/31/2025 COMP. METAB OLIC PANEL (14) AST (SGOT) 15 IU/L 0-40 Not Available [facility] ([facility] [place] [facility] [address] [facility] [place], [address], 08/31/2025 09:09:19 08/30/2008/31/2025 COMP. METAB OLIC PANEL (14) ALT (SGPT) 10 IU/L 0-32 Not Available [facility] ([facility] [place] [facility] [address] [facility], [place], [address], 08/31/2025 09:09:19 08/30/20 25 08/31/2025 CBC WITH DIFFE RENTI AL/PL ATELE T WBC 5.5 x10e3 /uL 3.4-10 .8 Not Available [facility] ([facility] [place] [facility] [address] [facility], [place], [address], 08/31/2025 09:09:20 08/30/20 25 08/31/2025 CBC WITH DIFFE RENTI AL/PL ATELE T RBC 4.37 x10e6 /uL 3.77-5 .28 Not Available [facility] ([facility] [place] [place] [facility] [address] [facility] [place] [place], [address], 08/31/2025 09:09:20 08/30/2008/31/2025 CBC WITH DIFFE RENTI AL/PL ATELE T hemoglobin 12.9 g/dL 11.1-1 5.9 Not Available [facility] ([facility] [place] [facility] [address] [facility] [place] [place], [address], 08/31/2025 09:09:20 08/30/2008/31/2025 CBC WITH DIFFE RENTI AL/PL ATELE T hematocrit 41.3 % 34.0-4 6.6 Not Available [facility] ([facility] [place] [place] [facility] [address] [facility], [place], [address], 08/31/2025 09:09:20 08/30/2008/31/2025 CBC WITH DIFFE RENTI AL/PL ATELE T MCV 95 fL 79-97 Not Available [facility] ([facility] [place] [place] [facility] [address] [facility], [place], [address], 08/31/2025 09:09:20 08/30/2008/31/2025 CBC WITH DIFFE RENTI AL/PL ATELE T MCH 29.5 pg 26.6-3 3.0 Not Available [facility] ([facility] [place] [place] [facility] [address] [facility], [place], [address], 08/31/2025 09:09:20 08/30/2008/31/2025 CBC WITH DIFFE RENTI AL/PL ATELE T MCHC 31.2 g/dL 31.5-3 5.7 below low normal Not Available [facility] ([facility] [place] [facility] [address] [place], [address], 08/31/2025 09:09:20 08/30/2008/31/2025 CBC WITH DIFFE RENTI AL/PL ATELE T RDW 11.9 % 11.7-1 5.4 Not Available [facility] ([facility] [place] [facility] [address] [place], [address], 08/31/2025 09:09:20 08/30/2008/31/2025 CBC WITH DIFFE RENTI AL/PL ATELE T platelets 284 x10e3 /uL 150-45 0 Not Available [facility] ([facility] [place] [facility] [address] [place], [address], 08/31/2025 09:09:20 08/30/20 25 08/31/2025 CBC WITH DIFFE RENTI AL/PL ATELE T neutrophils 56 % notest ab. Not Available [facility] ([facility] [place] [place] [facility] [address] [facility], [place], [address], 08/31/2025 09:09:20 08/30/20 25 08/31/2025 CBC WITH DIFFE RENTI AL/PL ATELE T lymphs 34 % notest ab. Not Available [facility] ([facility] [place] [place] [facility] [address] [facility], [place], [address], 08/31/2025 09:09:20 08/30/20 25 08/31/2025 CBC WITH DIFFE RENTI AL/PL ATELE T monocytes 8 % notest ab. Not Available [facility] ([facility] [place] [place] [facility] [address] [facility], [place], [address], 08/31/2025 09:09:20 08/30/20 25 08/31/2025 CBC WITH DIFFE RENTI AL/PL ATELE T eos 1 % notest ab. Not Available [facility] ([facility] [place] [place] [facility] [address] [facility], [place], [address], 08/31/2025 09:09:20 08/30/20 25 08/31/2025 CBC WITH DIFFE RENTI AL/PL ATELE T basos 1 % notest ab. Not Available [facility] ([facility] [place] [place] [facility] [address] [facility], [place], [address], 08/31/2025 09:09:20 08/30/20 25 08/31/2025 CBC WITH DIFFE RENTI AL/PL ATELE T neutrophils (absolute) 3.1 x10e3 /uL 1.4-7. 0 Not Available [facility] ([facility] [place] [place] [facility] [address] [facility], [place], [address], 08/31/2025 09:09:20 08/30/20 25 08/31/2025 CBC WITH DIFFE RENTI AL/PL ATELE T lymphs (absolute) 1.9 x10e3 /uL 0.7-3. 1 Not Available [facility] ([facility] [place] [facility] [address] [facility], [place], [address], 08/31/2025 09:09:20 08/30/20 25 08/31/2025 CBC WITH DIFFE RENTI AL/PL ATELE T monocytes(ab solute) 0.4 x10e3 /uL 0.1-0. 9 Not Available [facility] ([facility] [place] [facility] [address] [facility], [place], [address], 08/31/2025 09:09:20 08/30/2008/31/2025 CBC WITH DIFFE RENTI AL/PL ATELE T eos (absolute) 0.1 x10e3 /uL 0.0-0. 4 Not Available [facility] ([facility] [address] [place], [address], 08/31/2025 09:09:20 08/30/20 25 08/31/2025 CBC WITH DIFFE RENTI AL/PL ATELE T baso (absolute) 0.1 x10e3 /uL 0.0-0. 2 Not Available [facility] ([facility] [place] [facility] [address] [facility], [place], [address], 08/31/2025 09:09:20 08/30/20 25 08/31/2025 CBC WITH DIFFE RENTI AL/PL ATELE T immature granulocytes 0 % notest ab. Not Available [facility] ([facility] [place] [facility] [address] [place], [address], 08/31/2025 09:09:20 08/30/20 25 08/31/2025 CBC WITH DIFFE RENTI AL/PL ATELE T immature grans (abs) 0.0 x10e3 /uL 0.0-0. 1 Not Available [facility] ([facility] [place] [facility] [address] [place], [address], 08/31/2025 09:09:20 04/17/20 24 04/17/2024 , echoc ardio gram No observ ation record ed. [facility] [address], [place], [address], 04/27/2024 15:37:34 Result Notes None recorded. Medical Equipment None Reported. Allergies Allergen ID Allergen Name Allergen Category Reaction Reaction Severity Criticality Documentation Date Start Date Code Code System Note Provider Name and Address Organization Details Recorded Time 17241117 Substance with sulfonami de structure and antibacte rial mechanism of action (substanc e) medicatio n Not available Not available Not available 03/19/2024 15275 8003 SNOMED HARVINDER Medrano [facility] 4 11:09:08 Medications Not known to be on any medication Vitals Date Recorded Body height Body mass index (BMI) Body weight Heart rate Oxygen saturation Systolic And Diastolic Provider Name and Address Organization Details Last Updated DateTime 4 177.8 cm 24.4 kg/m2 65370.7 g 66 /min 99 % 130/80 mm[Hg] Yessica Forrest MA [facility] 4 11:11:36 Date Recorded Body height Body mass index (BMI) Body weight Heart rate Oxygen saturation Systolic And Diastolic Provider Name and Address Organization Details Last Updated DateTime 5 177.8 cm 25.2 kg/m2 42570.1 8 g 78 /min 99 % 112/72 mm[Hg] Justine Augustin MA [facility] 5 15:10:15 Social History Question Answer Notes LastModified by Organizat ion Details LastModified Time Tobacco Smoking Status Never Smoker HARVINDER Medrano [facility] 03/19/2024 11:09:23 Are You Blind Or Do You Have Difficulty Seeing? No Information n ot available 03/19/2024 What Is Your Level Of Caffeine Consumption? Occasional Information not available 08/26/2025 In The 14 Days Before Symptom Onset, Have You Had Close Contact With A Laboratory-confirm ed COVID-19 While That Case Was Ill? No Information n ot available 08/26/2025 In The 14 Days Before Symptom Onset, Have You Had Close Contact With A Person Who Is Under Investigation For COVID-19 While That Person Was Ill? No Information not available 08/26/2025 Have You Been To An Area Known To Be High Risk For COVID-19? No Information not available 08/26/2025 Are You Deaf Or Do You Have Serious Difficulty Hearing? No Information not available 03/19/2024 What Type Of Diet Are You Following? REGULAR Information n ot available 08/26/2025 What Was The Date Of Your Most Recent Tobacco Screening? 08/26/2025 Information not available 08/26/2025 What Is Your Relationship Status? Information not available 03/19/2024 Do You Use Your Seat Belt Or Car Seat Routinely? Yes Information not available 08/26/2025 Do You Have Smoke And Carbon Monoxide Detectors In Your Home? Yes Information not available 08/26/2025 Do You Use Sunscreen Routinely? Yes Information not available 08/26/2025 Has Tobacco Cessation Counseling Been Provided? No Information not available 08/26/2025 Sex: Female Functional Status Question Answer Note LastModified by [employer] ion Details LastModified Time Do you use any illicit or recreational drugs? No Information not available 08/26/2025 Do you or have you ever used any other forms of tobacco or nicotine? No Information not available 08/26/2025 What is your level of alcohol consumption? Occasional Information not available 03/19/2024 Are you able to care for yourself independently? Yes Information not available 03/19/2024 Mental Status None recorded. Family History Nothing Reported. Medical History No medical history recorded. Gynecological HistoryNo gynecological history recorded. Obstetrics History GPAL:G 0 P 0 0 0 0 Immunizations Vaccine Type Date Status Note Provider Nam e and Address Organization Details Recorded Time influenza, split (incl. purified surface antigen) 3 completed Not Available [facility] 08/26/2025 14:48:32 Influenza, split virus, trivalent, preservative 4 completed Not Available [facility] 08/26/2025 14:48:32 Influenza, split virus, trivalent, preservative 5 completed Not Available [facility] 08/26/2025 14:48:32 Influenza, split virus, quadrivalent, PF 9 completed [facility] Available [facility] 08/26/2025 14:48:32 Influenza, recombinant, quadrivalent, PF 0 completed Not Available [facility] 08/26/2025 14:48:32 COVID-19, mRNA, LNP-S, PF, 30 mcg/0.3 mL dose 1 completed Not Available [facility] 08/26/2025 14:48:32 COVID-19, mRNA, LNP-S, PF, 30 mcg/0.3 mL dose 1 completed Not Available [facility] 08/26/2025 14:48:32 Influenza, split virus, trivalent, preservative 1 completed Not Available [facility] 08/26/2025 14:48:32 COVID-19, mRNA, LNP-S, PF, 30 mcg/0.3 mL dose 1 completed Not Available [facility] 08/26/2025 14:48:32 Influenza, MDCK, quadrivalent, PF 2 completed Not Available [facility] 08/26/2025 14:48:32 COVID-19, mRNA, LNP-S, bivalent, PF, 30 mcg/0.3 mL dose 2 completed Not Available [facility] 08/26/2025 14:48:32 Influenza, MDCK, quadrivalent, PF 3 completed Not Available [facility] 08/26/2025 14:48:32 Influenza, split virus, trivalent, PF 4 completed Not Available [facility] 08/26/2025 14:48:32 COVID-19, mRNA, LNP-S, PF, 50 mcg/0.5 mL 5 completed Not Available [facility] 08/26/2025 14:48:32 Influenza, split virus, trivalent, PF 5 completed HAR[facility]INDER [place], [place] [facility] 08/26/2025 15:15:57 Past Encounters Encounter ID Performer Location Encounter Start Date Encounter Closed Date Diagnosis/Indication Diagnosis SNOMED-CT Code Diagnosis ICD10 Code Diagnosis IMO Codes Diagnosis Note [id number] John Sim MD [facility] [place] [address] [place] [address] 03/19/2024 11:02:46 03/19/2024 11:52:46 Mitral valve prolapse 943194310 I34.1 [id number] John Sim MD [facility] [address] [place] [address] 08/26/2025 14:46:22 08/26/2025 16:51:34 Overweight in adulthood with body mass index of 25 or more but less than 30 452360411 Z68.25 985282 Influenza vaccination given 6378637498 9109 Z23 69610988 Mitral valve prolapse 40 1004249 I34.1 Adult heal th examination 630099341 Z00.00 [id number] Health Concerns Section Related Observation LastModified by Organization Detai ls LastModified Time None Recorded Concern Status LastModified by Organization Details LastModified Time None Recorded Advance Directives Directive None Recorded Payers Insurance Date Sequence Insurance Name Policy Number Policy Javed Covered Member ID Javed Member ID Guarantor Name 08/23/2025 1 [facility] [id number] Viraj Pires [id number] Martha Pires Notes Date Note Type Note Provider Name and Address Organization Details Recorded Time 03/19/2024 text/html 48-year-old for follow-up of problems and has been doing fine son has been fighting some hockey injuries and has had her with some anxiety but that is doing better mitral valve prolapse asymptomatic John Sim MD Attn: [address] [place], [address], [facility] 03/28/2024 16:13:17 08/26/2025 text/html Overall doing fine a little bit of knee pain when she stretches to much mother is getting operated on for a aortic aneurysm in the thoracic area John Sim MD Attn: [address] [place], [address], [facility] 08/26/2025 20:52:46 OBGyn Episode No OBEpisode recorded.
--- OUTSIDE RECORDS SUMMARY | 2025-09-10 07:27 | XMS_ITS | Encounter Summary ---
Author Organization [facility] Address [address] [place] [address] Care Team Providers Care Revenue Accounting Manager Name Role Phone Shon Dyson MD Primary Care Provider [phone] Encounter Details Date Type Department Care Team (Late st Contact Info) Description 11/17/2007 Outpatient Historical HIS OB PREADMIT John Clarke MD [facility] [address] [address] Jj Stephenson MD NO ADDRESS ON FILE Social History Tobacco Use Types Packs/Day Years Used Date Smoking Tobacco: Never Assessed Comments Unknown Sex and Gender Information Value Date Recorded Sex Assigned at Not on file Legal Sex Female 5:27 AM WOMEN'S HEALTH CARE NURSE PRACTITIONER Gender Identity Not on file Sexual Orientation Not on file documented as of this encounter Plan of Treatment Not on file documented as of this encounter Procedures Procedure Name Priority Date/Time Associated Diagnosis Comments BLOOD GAS CORD ARTERIAL Routine 11/18/2007 9:09 AM WOMEN'S HEALTH CARE NURSE PRACTITIONER CBC WITH DIFFERENTIAL Routine 11/18/2007 7:54 AM WOMEN'S HEALTH CARE NURSE PRACTITIONER CBC WITH DIFFERENTIAL Routine 11/18/2007 7:54 AM WOMEN'S HEALTH CARE NURSE PRACTITIONER documented in this encounter Results * (ABNORMAL) BLOOD GAS CORD ARTERIAL (11/18/2007 9:09 AM WOMEN'S HEALTH CARE NURSE PRACTITIONER) PH CORD ARTERIAL 7.34 7.14 - 7.40 INTERFACE SYSTEM PCO2 CORD ARTERIAL 39 32 - 69 mm Hg INTERFACE SYSTEM PO2 CORD ARTERIAL 24 8 - 33 mm Hg INTERFACE SYSTEM HCO3 CORD ARTERIAL 20 16 - 27 mmol/L INTERFACE SYSTEM BASE EXCESS CORD ARTERIAL -4.4 -7.6 - 1.3 mmol/L INTERFACE SYSTEM SO2 CORD ARTERIAL 51 5 - 59 % INTERFACE SYSTEM FO2HB CORD ARTERIAL 51(L) 94 - 98 % INTERFACE SYSTEM HEMOGLOBIN CORD ARTERIAL 14.1(L) 14.5 - 22.5 g/dL INTERFACE SYSTEM 11/18/2007 9:09 AM WOMEN'S HEALTH CARE NURSE PRACTITIONER John Clarke MD ABG ORDERABLES Final Result Performing Organization Address [facility] de Phone Number INTERFACE SYSTEM Refer to clinic/hospital department * (ABNORMAL) CBC WITH DIFFERENTIAL (11/18/2007 7:54 AM WOMEN'S HEALTH CARE NURSE PRACTITIONER) NEUTROPHILS 79(H) 45 - 70 % INTERFAC E SYSTEM LYMPHOCYTES 13(L) 16 - 45 % INTERFAC E SYSTEM MONOCYTES 8 3 - 13 % INTERFACE SYSTEM EOSINOPHILS 0 0 - 7 % INTERFAC E SYSTEM BASOPHILS 0 0 - 2 % INTERFACE SYSTEM NEUTROPHIL ABSOLUTE 15.07(H) 1.90 - 7.00 K/uL INTERFACE SYSTEM LYMPHOCYTE ABSOLUTE 2.54 0.70 - 4.50 K/uL INTERFACE SYSTEM MONOCYTE ABSOLUTE 1.50(H) 0.10 - 1.30 K/uL INTERFACE SYSTEM EOSINOPHIL ABSOLUTE 0.02 0.00 - 0.70 K/uL INTERFACE SYSTEM BASOPHILS ABSOLUTE 0.03 0.00 - 0.20 K/uL INTERFACE SYSTEM 11/18/2007 7:54 AM WOMEN'S HEALTH CARE NURSE PRACTITIONER John Clarke MD HEMATOLOGY ORDERABLES Final Result Performing Organization Address [facility] Phone Number INTERFACE SYSTEM Refer to clinic/hospital department * (ABNORMAL) CBC WITH DIFFERENTIAL (11/18/2007 7:54 AM WOMEN'S HEALTH CARE NURSE PRACTITIONER) WBC 19.2(H) 4.0 - 9.8 K/uL INTERFACE SYSTEM RBC 4.06 3.90 - 4.90 M/uL INTERFACE SYSTEM HEMOGLOBIN 12.4 11.8 - 14.8 g/dL INTERFACE SYSTEM HEMATOCRIT 36.3 35.5 - 44.0 % INTERFACE SYSTEM MCV 89.4 82.0 - 99.0 fL INTERFACE SYSTEM MCH 30.5 27.2 - 32.6 pg INTERFACE SYSTEM MCHC 34.2 31.5 - 35.5 % INTERFACE SYSTEM RDW 13.3 11.5 - 14.5 % INTERFACE SYSTEM RDW-STDEV 42.7 37.1 - 48.7 fL INTERFACE SYSTEM PLATELETS 195 140 - 350 K/uL INTERFACE SYSTEM MPV 11.5 9.3 - 12.4 fL INTERFACE SYSTEM 11/18/2007 7:54 AM WOMEN'S HEALTH CARE NURSE PRACTITIONER us John Clarke MD HEMATOLOGY ORDERABLES Final Result INTERFACE SYSTEM Refer to clinic/hospital department documented in this encounter Visit Diagnoses Not on filedocumented in this encounter Care Teams Revenue Accounting Manager Relationship Specialty Start Date End Date Shon Dyson MD PCP - General 09/08/09 documented as of this encounter
--- OUTSIDE RECORDS SUMMARY | 2025-09-10 07:27 | XMS_ITS | Encounter Summary ---
Author Organization [facility] Address [address] [place] [address] Care Team Providers Care Lens Coating Technician Name Role Phone Shon Dyson MD Primary Care Provider [phone] Encounter Details Date Type Department Care Team (Late st Contact Info) Description 09/11/2007 Outpatient Historical HIS PATIENT IN A BED John Clarke MD [facility] [address] [place] [address] Jj Stephenson MD NO ADDRESS ON FILE Social History Tobacco Use Types Packs/Day Years Used Date Smoking Tobacco: Never Assessed Comments Unknown Sex and Gender Information Value Date Recorded Sex Assigned at Not on file Legal Sex Female 5:27 AM MEDICAL GRADE SHOEMAKER Gender Identity Not on file Sexual Orientation Not on file documented as of this encounter Plan of Treatment Not on file documented as of this encounter Procedures Procedure Name Priority Date/Time Associated Diagnosis Comments CBC WITH DIFFERENTIAL Routine 09/11/2007 8:08 PM MEDICAL GRADE SHOEMAKER CBC WITH DIFFERENTIAL Routine 09/11/2007 8:08 PM MEDICAL GRADE SHOEMAKER FIBRONECTIN Routine 09/11/2007 7:5 4 PM MEDICAL GRADE SHOEMAKER URINALYSIS WITH REFLEX CULTURE Routine 09/11/2007 6:36 PM MEDICAL GRADE SHOEMAKER URINALYSIS W/REFLEX MICROSCOPIC Routine 09/11/2007 6:36 PM MEDICAL GRADE SHOEMAKER documented in this encounter Results * (ABNORMAL) CBC WITH DIFFERENTIAL (09/11/2007 8:08 PM MEDICAL GRADE SHOEMAKER) Pathologist [facility] NEUTROPHILS 67 45 - 70 % INTERFAC E SYSTEM LYMPHOCYTES 24 16 - 45 % INTERFAC E SYSTEM MONOCYTES 8 3 - 13 % INTERFACE SYSTEM EOSINOPHILS 1 0 - 7 % INTERFAC E SYSTEM BASOPHILS 0 0 - 2 % INTERFACE SYSTEM NEUTROPHIL ABSOLUTE 8.30(H) 1.90 - 7.00 K/uL INTERFACE SYSTEM LYMPHOCYTE ABSOLUTE 2.98 0.70 - 4.50 K/uL INTERFACE SYSTEM MONOCYTE ABSOLUTE 1.05 0.10 - 1.30 K/uL INTERFACE SYSTEM EOSINOPHIL ABSOLUTE 0.09 0.00 - 0.70 K/uL INTERFACE SYSTEM BASOPHILS ABSOLUTE 0.02 0.00 - 0.20 K/uL INTERFACE SYSTEM 09/11/2007 8:08 PM MEDICAL GRADE SHOEMAKER John Clarke MD HEMATOLOGY ORDERABLES Edited Performing Organization Address [facility] de Phone Number INTERFACE SYSTEM Refer to clinic/hospital department * (ABNORMAL) CBC WITH DIFFERENTIAL (09/11/2007 8:08 PM MEDICAL GRADE SHOEMAKER) Pathologist [facility] WBC 12.4(H) 4.0 - 9.8 K/uL INTERFACE SYSTEM RBC 3.56(L) 3.90 - 4.90 M/uL INTERFACE SYSTEM HEMOGLOBIN 10.8(L) 11.8 - 14.8 g/dL INTERFACE SYSTEM HEMATOCRIT 31.8(L) 35.5 - 44.0 % INTERFACE SYSTEM MCV 89.3 82.0 - 99.0 fL INTERFACE SYSTEM MCH 30.3 27.2 - 32.6 pg INTERFACE SYSTEM MCHC 34.0 31.5 - 35.5 % INTERFACE SYSTEM RDW 12.8 11.5 - 14.5 % INTERFACE SYSTEM RDW-STDEV 41.3 37.1 - 48.7 fL INTERFACE SYSTEM PLATELETS 204 140 - 350 K/uL INTERFACE SYSTEM MPV 10.9 9.3 - 12.4 fL INTERFACE SYSTEM 09/11/2007 8:08 PM MEDICAL GRADE SHOEMAKER John Clarke MD HEMATOLOGY ORDERABLES Edited Performing Organization Address [facility] Co de Phone Number INTERFACE SYSTEM Refer to clinic/hospital department * FIBRONECTIN (09/11/2007 7:54 PM MEDICAL GRADE SHOEMAKER) FIBRONECTIN Negative Negative INTERFACE SYSTEM GESTATIONAL AGE 28.9 Weeks INTE RFACE SYSTEM 09/11/2007 7:54 PM MEDICAL GRADE SHOEMAKER Result [facility] John Clarke MD BODY FLUIDS AND STOOLS Edite d Performing Organization Address [facility] Phone Number INTERFACE SYSTEM Refer to clinic/hospital department * URINALYSIS (09/11/2007 6:36 PM MEDICAL GRADE SHOEMAKER) COLOR UA Pale Yellow INTERFAC E SYSTEM CLARITY UA Clear Clear INTERFACE SYSTEM SPECIFIC GRAVITY UA 1.005 1.001 - 1.035 INTERFACE SYSTEM PH UA 5.5 5.0 - 8.0 INTERFACE SYSTEM LEUKOCYTE ESTERASE UA Negative Negative INTERFACE SYSTEM NITRITE UA Negative Negative INTERFACE SYSTEM PROTEIN UA Negative Negative INTERFACE SYSTEM GLUCOSE UA Negative Negative INTERFACE SYSTEM KETONES UA Negative Negative INTERFACE SYSTEM UROBILINOGEN UA <1 <=1 mg/dL INTE RFACE SYSTEM BILIRUBIN UA Negative Negative INTERFA CE SYSTEM BLOOD UA Negative Negative INTERFACE SYSTEM 09/11/2007 6:36 PM MEDICAL GRADE SHOEMAKER Result [facility] John Clarke MD URINE ORDERABLES Edited Performing Organization Address [facility] INTERFACE SYSTEM Refer to clinic/hospital department * URINALYSIS WITH REFLEX CULTURE (09/11/2007 6:36 PM MEDICAL GRADE SHOEMAKER) URINE CULTURE ORDER Not indicated INTERFACE SYSTEM Comment: Criteria for a reflex culture include one or more of the following: Abn ormal nitrite, leukocyte esterase, WBCs or RBCs. Lack of qualifying criteria does not exclude the possiblity of a urinary tract infection. Dilute urine, drug interference, etc. may decrease the sensitivity of the criteria analytes. 09/11/2007 6:36 PM MEDICAL GRADE SHOEMAKER Result [facility] John Clarke MD URINE ORDERABLES Edited Performing Organization Address [facility] Phone Number INTERFACE SYSTEM Refer to clinic/hospital department documented in this encounter Visit Diagnoses Not on filedocumented in this encounter Care Teams Lens Coating Technician Relationship Specialty Start Date End Date Shon Dyson MD PCP - General 09/08/09 documented as of this encounter
--- OUTSIDE RECORDS SUMMARY | 2025-09-10 07:27 | XMS_ITS | Continuity of Care Document ---
Author Organization [place] - [place], [facility] [place] Address [address] [place] [address] Care Team Providers Care Packaging Line Operator Name Role Phone JOHN SIM Primary Care Provider Unavailabl e Assessment Encounter Date Assessment Date Assessment LastModified by Organization Details LastModified Time 08/26/2025 08/26/2025 We will get echo or CT and echo depending upon what she finds out specifically on what mother's having done otherwise healthy lifestyle choices discussed blood work and she will see me in a year she will get a Cologuard and she follows up with mammograms and [facility] with another provider [email or web address] Not available 08/26/2025 20:52:06 Plan of Treatment Reminders Order Date Submit Date Provider Last Modified By Organization Details Last Modified Time Details Appointments ANY 15 2025 09:30A M John Sim MD Not available Not available Not available Lab CMP, serum or plasma 2024 025 [facility], [address], [address], [place], [address], 08/31/2025 09:09:19 lipid panel, serum 2024 025 [facility], [address], [address], [place], [address], 08/31/2025 09:09:19 CBC w/ auto diff 2024 025 [facility], [address], [address], [place], [address], 08/31/2025 09:09:20 Referral None recorded. Procedures None recorded. Surgeries None recorded. Imaging US, echocardi ogram 2024 025 [facility] [address], [place], [address], 08/28/2025 09:50:39 Medication Orders None recorded. Patient TargetsNo targets recorded. Patient Instructions Encounter Date Encounter Id Patient Instructions Last Modified By Organization Details Last Modified Time 08/26/2025 [id number] A healthy lifestyle: care instructions [email or web address] Not available 08/26/2025 15:28:54 Reason for Referral None Reported. Results Created Date Observation Date Name Description Value Unit Range Abnormal Flag Note LastModifiedBy Organization Detail LastModifiedTime 08/30/2008/31/2025 LIPID PANEL cholesterol, total 184 mg/dL 100-19 9 Not Available [facility] ([facility]) [address] [place], [address], 08/31/2025 09:09:18 08/30/20 25 08/31/2025 LIPID PANEL triglyceride s 80 mg/dL 0-149 Not Available [facility] ([facility]) [address] [place], [address], 08/31/2025 09:09:18 08/30/20 25 08/31/2025 LIPID PANEL HDL cholesterol 63 mg/dL >39 Not Available [facility] ([facility]) [address] [place], [address], 08/31/2025 09:09:18 08/30/20 25 08/31/2025 LIPID PANEL VLDL cholesterol siri 15 mg/dL 5-40 Not Available [facility] ([facility]) [address] [place], [address], 08/31/2025 09:09:18 08/30/20 25 08/31/2025 LIPID PANEL LDL chol calc ([facility]) 106 mg/dL 0-99 above high normal Not Available [facility] ([facility]) [address] [place], [address], 08/31/2025 09:09:18 08/30/20 25 08/31/2025 COMP. METAB OLIC PANEL (14) glucose 88 mg/dL 70-99 Not Available [facility] ([facility]) [address] [facility] [place], [address], 08/31/2025 09:09:19 08/30/20 25 08/31/2025 COMP. METAB OLIC PANEL (14) BUN 15 mg/dL 6-24 Not Available [facility] ([facility]) [address] [facility] [place], [address], 08/31/2025 09:09:19 08/30/20 25 08/31/2025 COMP. METAB OLIC PANEL (14) creatinine 0.98 mg/dL 0.57-1 .00 Not Available [facility] ([facility]) [address] [facility], [place], [address], 08/31/2025 09:09:19 08/30/20 25 08/31/2025 COMP. METAB OLIC PANEL (14) eGFR 70 mL/mi n/1.7 3 >59 Not Available [facility] ([facility]) [address] [place], [address], 08/31/2025 09:09:19 08/30/20 25 08/31/2025 COMP. METAB OLIC PANEL (14) BUN/creatini ne ratio 15 9-23 Not Available [facility] ([facility]) [address] [place], [address], 08/31/2025 09:09:19 08/30/20 25 08/31/2025 COMP. METAB OLIC PANEL (14) sodium 142 mmol/ L 134-14 4 Not Available [facility] ([facility]) [address] [place], [address], 08/31/2025 09:09:19 08/30/20 25 08/31/2025 COMP. METAB OLIC PANEL (14) potassium 4.6 mmol/ L 3.5-5. 2 Not Available [facility] ([facility]) [address] [place], [address], 08/31/2025 09:09:19 08/30/20 25 08/31/2025 COMP. METAB OLIC PANEL (14) chloride 105 mmol/ L 96-106 Not Available [facility] ([facility]) [address] [facility], [place], [address], 08/31/2025 09:09:19 08/30/2008/31/2025 COMP. METAB OLIC PANEL (14) carbon dioxide, total 23 mmol/ L 20-29 Not Available [facility] ([facility]) [address] [facility], [place], [address], 08/31/2025 09:09:19 08/30/20 25 08/31/2025 COMP. METAB OLIC PANEL (14) calcium 9.6 mg/dL 8.7-10 .2 Not Available [facility] ([facility]) [address] [place], [address], 08/31/2025 09:09:19 08/30/20 25 08/31/2025 COMP. METAB OLIC PANEL (14) protein, total 7.1 g/dL 6.0-8. 5 Not Available [facility] ([facility]) [address] [place], [address], 08/31/2025 09:09:19 08/30/20 25 08/31/2025 COMP. METAB OLIC PANEL (14) albumin 4.4 g/dL 3.8-4. 9 Not Available [facility] ([facility]) [address] [place], [address], 08/31/2025 09:09:19 08/30/20 25 08/31/2025 COMP. METAB OLIC PANEL (14) globulin, total 2.7 g/dL 1.5-4. 5 Not Available [facility] ([facility]) [address] [place], [address], 08/31/2025 09:09:19 08/30/20 25 08/31/2025 COMP. METAB OLIC PANEL (14) bilirubin, total 0.6 mg/dL 0.0-1. 2 Not Available [facility] ([facility]) [address] [place], [address], 08/31/2025 09:09:19 08/30/20 25 08/31/2025 COMP. METAB OLIC PANEL (14) alkaline phosphatase 43 IU/L 49-135 below low normal Not Available [facility] ([facility]) [address] [place], [address], 08/31/2025 09:09:19 08/30/20 25 08/31/2025 COMP. METAB OLIC PANEL (14) AST (SGOT) 15 IU/L 0-40 Not Available [facility] ([facility]) [address] [place], [address], 08/31/2025 09:09:19 08/30/20 25 08/31/2025 COMP. METAB OLIC PANEL (14) ALT (SGPT) 10 IU/L 0-32 Not Available [facility] ([facility]) [address] [place], [address], 08/31/2025 09:09:19 08/30/20 25 08/31/2025 CBC WITH DIFFE RENTI AL/PL ATELE T WBC 5.5 x10e3 /uL 3.4-10 .8 Not Available [facility] ([facility]) [address] [place], [address], 08/31/2025 09:09:20 08/30/20 25 08/31/2025 CBC WITH DIFFE RENTI AL/PL ATELE T RBC 4.37 x10e6 /uL 3.77-5 .28 Not Available [facility] ([facility]) [address] [facility], [place], [address], 08/31/2025 09:09:20 08/30/20 25 08/31/2025 CBC WITH DIFFE RENTI AL/PL ATELE T hemoglobin 12.9 g/dL 11.1-1 5.9 Not Available [facility] ([facility]) [address] [facility], [place], [address], 08/31/2025 09:09:20 08/30/20 25 08/31/2025 CBC WITH DIFFE RENTI AL/PL ATELE T hematocrit 41.3 % 34.0-4 6.6 Not Available [facility] ([facility]) [address] [facility], [place], [address], 08/31/2025 09:09:20 08/30/2008/31/2025 CBC WITH DIFFE RENTI AL/PL ATELE T MCV 95 fL 79-97 Not Available [facility] ([facility]) [address] [facility], [place], [address], 08/31/2025 09:09:20 08/30/20 25 08/31/2025 CBC WITH DIFFE RENTI AL/PL ATELE T MCH 29.5 pg 26.6-3 3.0 Not Available [facility] ([facility]) [address] [facility], [place], [address], 08/31/2025 09:09:20 08/30/20 25 08/31/2025 CBC WITH DIFFE RENTI AL/PL ATELE T MCHC 31.2 g/dL 31.5-3 5.7 below low normal Not Available [facility] ([facility]) [address] [facility], [place], [address], 08/31/2025 09:09:20 08/30/20 25 08/31/2025 CBC WITH DIFFE RENTI AL/PL ATELE T RDW 11.9 % 11.7-1 5.4 Not Available [facility] ([facility]) [address] [facility], [place], [address], 08/31/2025 09:09:20 08/30/20 25 08/31/2025 CBC WITH DIFFE RENTI AL/PL ATELE T platelets 284 x10e3 /uL 150-45 0 Not Available [facility] ([facility]) [address] [facility], [place], [address], 08/31/2025 09:09:20 08/30/20 25 08/31/2025 CBC WITH DIFFE RENTI AL/PL ATELE T neutrophils 56 % notest ab. Not Available [facility] ([facility]) [address] [facility], [place], [address], 08/31/2025 09:09:20 08/30/20 25 08/31/2025 CBC WITH DIFFE RENTI AL/PL ATELE T lymphs 34 % notest ab. Not Available [facility] ([facility]) [address] [facility], [place], [address], 08/31/2025 09:09:20 08/30/20 25 08/31/2025 CBC WITH DIFFE RENTI AL/PL ATELE T monocytes 8 % notest ab. Not Available [facility] ([facility]) [address] [facility], [place], [address], 08/31/2025 09:09:20 08/30/20 25 08/31/2025 CBC WITH DIFFE RENTI AL/PL ATELE T eos 1 % notest ab. Not Available [facility] ([facility]) [address] [facility], [place], [address], 08/31/2025 09:09:20 08/30/20 25 08/31/2025 CBC WITH DIFFE RENTI AL/PL ATELE T basos 1 % notest ab. Not Available [facility] ([facility]) [address] [facility], [place], [address], 08/31/2025 09:09:20 08/30/20 25 08/31/2025 CBC WITH DIFFE RENTI AL/PL ATELE T neutrophils (absolute) 3.1 x10e3 /uL 1.4-7. 0 Not Available [facility] ([facility]) [address] [facility], [place], [address], 08/31/2025 09:09:20 08/30/20 25 08/31/2025 CBC WITH DIFFE RENTI AL/PL ATELE T lymphs (absolute) 1.9 x10e3 /uL 0.7-3. 1 Not Available [facility] ([facility]) [address] [place], [address], 08/31/2025 09:09:20 08/30/20 25 08/31/2025 CBC WITH DIFFE RENTI AL/PL ATELE T monocytes(ab solute) 0.4 x10e3 /uL 0.1-0. 9 Not Available [facility] ([facility]) [address] [place], [address], 08/31/2025 09:09:20 08/30/20 25 08/31/2025 CBC WITH DIFFE RENTI AL/PL ATELE T eos (absolute) 0.1 x10e3 /uL 0.0-0. 4 Not Available [facility] ([facility]) [address] [place], [address], 08/31/2025 09:09:20 08/30/20 25 08/31/2025 CBC WITH DIFFE RENTI AL/PL ATELE T baso (absolute) 0.1 x10e3 /uL 0.0-0. 2 Not Available [facility] ([facility]) [address] [place], [address], 08/31/2025 09:09:20 08/30/20 25 08/31/2025 CBC WITH DIFFE RENTI AL/PL ATELE T immature granulocytes 0 % notest ab. Not Available [facility] ([facility]) [address] [facility], [place], [address], 08/31/2025 09:09:20 08/30/20 25 08/31/2025 CBC WITH DIFFE RENTI AL/PL ATELE T immature grans (abs) 0.0 x10e3 /uL 0.0-0. 1 Not Available [facility] ([facility]) [address] [facility], [place], [address], 08/31/2025 09:09:20 Result Notes None recorded. Medical Equipment None Reported. Allergies Allergen ID Allergen Name Allergen Category Reaction Reaction Severity Criticality Documentation Date Start Date Code Code System Note Provider Name and Address Organization Details Recorded Time 787800 Substance with sulfonami de structure and antibacte rial mechanism of action (substanc e) medicatio n Not available Not available Not available 03/19/2024 27544 [address] [facility] 4 11:09:08 Medications Not known to be on any medication Vitals Date Recorded Body height Body mass index (BMI) Body weight Heart rate Oxygen saturation Systolic And Diastolic Provider Name and Address Organization Details Last Updated DateTime 5 177.8 cm 25.2 kg/m2 28466.1 8 g 78 /min 99 % 112/72 mm[Hg] Justine Augustin MA [facility] 5 15:10:15 Social History Question Answer Notes LastModified by Organizat ion Details LastModified Time Tobacco Smoking Status Never Smoker HARVINEDR Medrano [facility] 03/19/2024 11:09:23 Are You Blind Or Do [...] Functional Status Question Answer Note LastModified by [employer] ion Details LastModified Time Do you use [...] purified surface antigen) 3 completed Not Available [facility] 08/26/2025 14:48:32 Influenza, split virus, trivalent, preservative 4 completed Not Available [facility] 08/26/2025 14:48:32 Influenza, split virus, trivalent, preservative 5 completed Not Available [facility] 08/26/2025 14:48:32 Influenza, split virus, quadrivalent, PF 9 completed Not Available [facility] 08/26/2025 14:48:32 Influenza, recombinant, quadrivalent, PF 0 completed Not Available [facility] 08/26/2025 14:48:32 COVID-19, mRNA, LNP-S, PF, 30 mcg/0.3 mL dose 1 completed Not Available [facility] 08/26/2025 14:48:32 COVID-19, mRNA, LNP-S, PF, 30 mcg/0.3 mL dose 1 completed Not Available [facility] 08/26/2025 14:48:32 Influenza, split virus, trivalent, preservative 1 completed Not Available [facility] 08/26/2025 14:48:32 COVID-19, mRNA, LNP-S, PF, 30 mcg/0.3 mL dose 1 completed Not Available [facility] 08/26/2025 14:48:32 Influenza, MDCK, quadrivalent, PF 2 completed Not Available [facility] 08/26/2025 14:48:32 COVID-19, mRNA, LNP-S, bivalent, PF, 30 mcg/0.3 mL dose 2 completed Not Available [facility] 08/26/2025 14:48:32 Influenza, MDCK, quadrivalent, PF 3 completed Not Available [facility] 08/26/2025 14:48:32 Influenza, split virus, trivalent, PF 4 completed Not Available [facility] 08/26/2025 14:48:32 COVID-19, mRNA, LNP-S, PF, 50 mcg/0.5 mL 5 completed Not Available [facility] 08/26/2025 14:48:32 Influenza, split virus, trivalent, PF 5 completed HARVINDER [place], [place] - [facility] 08/26/2025 15:15:57 Past Encounters Encounter ID Performer Location Encounter Start Date Encounter Closed Date Diagnosis/Indication Diagnosis SNOMED-CT Code Diagnosis ICD10 Code Diagnosis IMO Codes Diagnosis Note [id number] John Sim MD [facility] [place] [address] [place] [address] 08/26/2025 14:46:22 08/26/2025 16:51:34 Overweight in adulthood with body mass index of 25 or more but less than 30 735634566 Z68.25 768055 Influenza vaccination given 6670792380 9109 Z23 89436859 Mitral valve prolapse 40 5715633 I34.1 Adult heal th examination 616183256 Z00.00 7676170 Health Concerns Section Related Observation LastModified by Organization Detai ls LastModified Time None Recorded Concern Status LastModified by Organization Details LastModified Time None Recorded Payers Encounter Date Sequence Insurance Name Policy Number Policy Javed Covered Member ID Javed Member ID Guarantor Name 08/26/2025 1 [facility] ([facility] [id number] Viraj Pires [id number] Martha Pires Notes Date Note Type Note Provider Name and Address Organization Details Recorded Time 08/26/2025 text/html Overall doing fine a little bit of knee pain when she stretches to much mother is getting operated on for a aortic aneurysm in the thoracic area John Sim MD Attn: Accounting,[address] [place], [address], [facility] 08/26/2025 20:52:46 OBGyn Episode No OBEpisode recorded.
--- OUTSIDE RECORDS SUMMARY | 2025-09-10 07:27 | XMS_ITS | Clinical Summary ---
Author Organization [facility] Address [address] [place] [address] Care Team Providers Care Nicu Rn Name Role Phone Unavailable Primary Care Provider Unavailabl e Source Comments [facility],non-owned Affiliates and Associated Physician Practices is amultiple site organization consisting of ambulatory clinics and hospital sitesin [place], [place], [place] and [place]. This disclosure is being madepursuant to the Care Everywhere program and may not contain all information available regarding this patient. Last updated 18.[facility] Allergies Active Allergy Reactions Criticality Noted Date Comments Sulfa Drugs 08/11/2016 Medications * Be aware that medications may not be up to date on this document. Alwaysverify current medications with the patient. benzonatate (TESSALON) 200 MG capsule Take 1 Cap by mouth 3 times daily as needed for Cough 30 Cap 6 Active Additional Information Patient not taking.Reported on 11/23/2019 Immunizations Immunization Administration Dates Next Due INFLUENZA VACCINE, QUADR. (F LUZONE; FLULAVAL; FLUARIX; AFLURIA QUADRIVALENT; 6MO+), 0.5 ML (IIV4) 08/06/2019 Family History Medical History Relation Name Comments ADHD Neg Hx Allergies Neg Hx Aneurysm Neg Hx Asthma Neg Hx Autoimmune Disease Neg Hx Bipolar Disorder Neg Hx CVA<55(male) Neg Hx CVA<65(female) Neg Hx Cancer - Breast Neg Hx Cancer - Colon Neg Hx Cancer - Other Neg Hx Cancer - Ovarian Neg Hx Cancer - Pancreatic Neg Hx Cancer - Prostate Neg Hx Childhood Hearing Disorder Neg Hx Clotting Disorder Neg Hx Depression Neg Hx Diabetes Neg Hx Eczema Neg Hx Genetic Neg Hx Heart Failure Neg Hx Heart defect Neg Hx Hypercholesterolemia Neg Hx Hypertension Neg Hx DC<55(male) Neg Hx DC<65(female) Neg Hx Mental Health Neg Hx Migraine Neg Hx Osteoporosis Neg Hx Seizures Neg Hx Sudd. <30 Neg Hx Thyroid Disease Neg Hx Ulcerative Colitis Neg Hx Social History Tobacco Use Types Packs/Day Years Used Date Smoking Tobacco: Never Smokeless Tobacco: Never Alcohol Use Standard Drinks/Week Comments Yes 0 (1 standard drink = 0.6 oz pur e alcohol) Comments No Sex and Gender Information Value Date Recorded Sex Assigned at Not on file Legal Sex Female 11:24 AM CDT Gender Identity Not on file Sexual Orientation Not on file Last Filed Vital Signs Vital Sign Reading Time Taken Comments Blood Pressure 118/74 11/23/2019 3:26 PM REVIEW NURSE Pulse 86 11/23/2019 3:26 PM REVIEW NURSE Temperature 36.9 C (98.5 F) 11/23/2019 3:26 PM REVIEW NURSE Respiratory Rate 16 11/23/2019 3:26 PM REVIEW NURSE Oxygen Saturation 98% 11/23/2019 3:26 PM REVIEW NURSE Inhaled Oxygen Concentration - - Weight 72.6 kg (160 lb) 11/23/2019 3:26 PM REVIEW NURSE Height 177.8 cm (5' 10) 11/23/2019 3:26 PM REVIEW NURSE Body Mass Index 22.96 11/23/2019 3:26 PM REVIEW NURSE Plan of Treatment Health Maintenance Due Date Last Done Comments COLOGUARD (AGES 45-75) - COL ON CA SCREENING 1973 COLON MONITORING 1973 COLONOSCOPY - COLON CA SCREENING 1973 CT COLONOGRAPHY - COLON CA SCREENING 1973 Colorectal Cancer Screening 1973 FIT - COLON CA SCREENING 1973 FLEX SIG - COLON CA SCREENING 1973 LIPID TESTING 1973 MAMMOGRAM 1973 HIV SCREENING 1988 HEPATITIS C SCREENING 12/09/1991 DTAP/TDAP/TD VACCINES (1 - Tdap) 1992 HEPATITIS B VACCINE (1 of 3 - 19+ 3-dose series) 1992 PAP SMEAR 1994 Cervical Cancer Screening 12/14/2003 PAP with HPV 12/14/2003 PNEUMOCOCCAL VACCINE 50+ (1 of 1 - PCV) 12/14/2023 ZOSTER VACCINE (1 of 2) 12/14/2023 DEPRESSION SCREENING 10/10/2024 COVID-19 VACCINE (1 - 5-2 6 season) 2025 INFLUENZA VACCINE (#1) 2025 08/06/2019 HIB VACCINE Aged Out No longer eligi ble based on patient's age to complete this topic HPV VACCINE Aged Out No longer eligi ble based on patient's age to complete this topic MENINGOCOCCAL (Group B) VACC INE SHARED DECISION-MAKING Aged Out No longer eligibl e based on patient's age to complete this topic MENINGOCOCCAL GROUPS A/C/Y/W VACCINE Aged Out No longer eligible b ased on patient's age to complete this [place] [address] [facility]
--- OUTSIDE RECORDS SUMMARY | 2025-09-10 07:27 | XMS_ITS | Clinical Summary ---
Author Organization [facility] Address [address] [place] [address] Phone Care Team Providers Care Behavioral Health Consultant Name Role Phone Shon Dyson MD Primary Care Provider [phone] Allergies Active Allergy Reactions Criticality Noted Date Comments Sulfa (Sulfonamide Antibiotics) Unknown 11/2015 Medications ascorbic acid (VITAMIN C) 500 mg Tablet, Chewable Take 500 mg by mouth. Active Active Problems No known active problems Encounters Date Type Department Care Team Description 08/13/2025 External Device Data [facility] ABSTRACTION Provider, Abstract 08/07/2025 External Device Data [facility] Provider, Abstract 08/07/2025 External Device Data [facility] Provider, Abstract 07/31/2025 External Device Data [facility] Provider, Abstract 07/30/2025 External Device Data [facility] Provider, Abstract 06/26/2025 External Device Data [facility]STRACTION Provider, Abstract 06/25/2025 External Device Data [facility]STRACTION Provider, Abstract from Last 3 Months Family History Medical History Relation Name Comments Breast Cancer Other pgm Cancer Neg Hx Ovarian Cancer Neg Hx Relation Name Status Comments Other pgm Alive Social History Tobacco Use Types Packs/Day Years Used Date Smoking Tobacco: Never Smokeless Tobacco: Never Alcohol Use Standard Drinks/Week Comments Yes 0 (1 standard drink = 0.6 oz pur e alcohol) Socially Comments No Sex and Gender Information Value Date Recorded Sex Assigned at Not on file 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 Gender Identity Not on file Sexual Orientation Not on file Occupation Industry Job Start Date Job End Date Not on file Not on file Not on file Not on file Last Filed Vital Signs Vital Sign Reading Time Taken Comments Blood Pressure 122/86 03/14/2025 9:48 AM CDT Pulse - - Temperature - - Respiratory Rate - - Oxygen Saturation - - Inhaled Oxygen Concentration - - Weight 80 kg (176 lb 6.4 oz) 03/14/2025 9:48 AM CDT Height 177.8 cm (5' 10) 03/14/2025 9:48 AM CDT Body Mass Index 25.31 03/14/2025 9:48 AM CDT Plan of Treatment Health Maintenance Due Date Last Done Comments Pre-Diabetes and Diabetes Screening 1973 DTAP/TDAP/TD VACCINES (1 - Tdap) 1992 HEPATITIS B VACCINES (1 of 3 - 19+ 3-dose series) 1992 COLORECTAL SCREENING 2018 Colorectal Cancer Screening 2018 FIT-DNA Q 3 years 2018 FIT/FOBT Q 1 year 2018 Flex Sig/CT Colonography Q 5 years 2018 ZOSTER VACCINE (1 of 2) 12/14/2023 INFLUENZA VACCINE (#1) 2025 09/09/2020, 2018 BREAST CANCER SCREENING 11/08/2025 11/08/19 25, 11/07/2023, 11/09/2022, Additional history exists PAP SMEAR 02/20/2028 02/19/2025, 05/0 06/2024, 02/14/2023, Additional history exists CERVICAL CANCER SCREENING 02/19/2030 HPV/Cotest (21-29) 02/19/2030 02/19/2025, 0 02/16/2024, 02/14/2023, Additional history exists HPV/Cotest (30-65) 02/19/2030 02/19/2025, 0 02/16/2024, 02/14/2023, Additional history exists Procedures Procedure Name Priority Date/Time Associated Diagnosis Comments CERV/VAG CYTO AGE BASED SCREEN PAP Routine 02/19/2025 1:56 PM CDT Screening for malignant neoplasm of cervix MAMMO SCREEN BILAT W OR WO CAD Routine 11/08/2024 2:58 PM ONLINE MARKETING DIRECTOR from Last 3 Months or Most Recently Relevant to Health Maintenance Results * (ABNORMAL) CERV/VAG CYTO AGE BASED SCREEN PAP (02/19/2025 1:56 PM CDT) COMMENT (PAP): [facility] [employer] Pendleton Comment: This order for age-based cervical cancer and STI screening follows ACOG guidelines(PB 168, 140, PIB259). See individual assays for performing site location. CLINICAL INFORMATION [facility] Comment:None given LAST MENSTRUAL PERIOD [facility] [employer] Alanis Comment:NONE GIVEN PREV PAP: [facility] [employer] Pendleton Comment:NONE GIVEN PREV BX: [facility] [employer] Alanis Comment:NONE GIVEN SOURCE [facility] [employer] Pendleton Comment:Endocervix ADEQUACY: [facility] [employer] Pendleton Comment: Satisfactory for evaluation. Endocervical/transformation zone component present. Age and/or menstrual status not provided GENERAL CATEGORIZATION: (A) [facility] [employer] Pendleton Comment:Cytology Results: Ep ithelial Cell Abnormality PAP INTERP (A) [facility] Comment:Low Grade Squamous I ntraepithelial Lesion (LSIL) COMMENT (PAP TEST) [facility] [employer] Pendleton Comment: This Pap test has been evaluated with computer assisted technology. Suggest clinical correlation and follow-up as clinically appropriate GROCERY STOCK CLERK: Qu dayami Nobles Pendleton Comment: MEEK KEATING(ASCP) CT Screening Location: [place] [address] [place] [address] PATHOLOGIST [facility] Comment: Rio Mg M.D., Board Certified in Anatomic Pathology and Cytopathology. (electronic signature) Pathologist Release Date/Time: 02/25/2025 11:39AM EXPLANATORY NOTE Que Mallorie Pendleton Comment: EXPLANATORY NOTE: The Pap is a screening test for cervical cancer. It is not a diagnostic test and is subject to false negative and false positive results. It is most reliable when a satisfactory sample, regularly obtained, is submitted with relevant clinical findings and history, and when the Pap result is evaluated along with historic and current clinical information. HPV E6/E7 Detected( A) Not Detected [facility] [employer] Alanis Comment: Methodology: [employer] Chair-Mediated Amplification This assay detects E6/E7 viral messenger RNA (mRNA) from 14 high-risk HPV types (16,18,31,33,35,39,45,51,52,56,58,59,66,68). Cervical sources are required for HPV testing. If a vaginal source from a patient who has had a total hysterectomy with removal of cervix was submitted, please contact the testing laboratory for alternative testing options. For additional information, please refer to http://education.Saberr/faq/WHP255y3 (This link if provided for information/ educational purposes only.) Test Performed at: [address] [address] [facility] SWAB OF ENDOCERVIX / Unknown 02/19/2025 1:56 PM CDT 02/20/2025 4:13 PM CDT John Clarke MD PATHOLOGY/CYTOLOGY ORDERABLE S Final Result [facility] [phone] [address] * MAMMO SCREEN BILAT W OR WO CAD (11/08/2024 2:58 PM ONLINE MARKETING DIRECTOR) Anatomical Region Laterality Modality Breast Bilateral Mammography John Clarke MD MAMMO ORDERABLES Edited Resu lt - Final from Last 3 Months or Most Recently Relevant to Health Maintenance Insurance [facility] BLUE ACCESS CHOICE Care Teams Behavioral Health Consultant Relationship Specialty Start Date End Date Shon Dyson MD PCP - General 09/08/09
== END 2025-09-10 07:24 | disposition home or self-care (01) ==
PROVIDERS: PCP Internal Medicine; Visit Provider Internal Medicine
DX: I34.1 Nonrheumatic mitral (valve) prolapse (principal); I36.1 Nonrheumatic tricuspid (valve) insufficiency
CPT/HCPCS: 93306

== ENCOUNTER 2025-09-20 13:58 | Outpatient (CLI) | payer BC, SELFPAY ==
--- NOTE | ~2025-09-20 | CT_ITS ---
EXAMINATION: CT angiogram chest: DATE: 09/20/2025 INDICATION: History of aneurysm. TECHNIQUE: CT angiogram chest was performed with 100 cc of Omnipaque 350. Multiplanar and 3-D reconstruction images obtained. Radiation dose 270 MG Y C.M. COMPARISON: None. FINDINGS: No acute or focal pulmonary lesions. No evidence of pulmonary emboli. Ascending thoracic aorta measures AP diameter of 3 cm. Descending thoracic aorta 0.5 cm in aortic arch 2.5 cm. No evidence of thoracic aortic aneurysm or dissection are seen. No evidence of lymphadenopathy or effusion. IMPRESSION: 1. No evidence of thoracic aortic aneurysm or dissection. 2. No evidence of pulmonary embolus. 3. No acute pulmonary findings. No lymphadenopathy or effusion. Reviewed, dictated and finalized at location [employer]
[2025-09-20 14:39] LABS: Estimated Glomerular Filt Rate 58
== END 2025-09-20 13:59 | disposition home or self-care (01) ==
PROVIDERS: PCP Internal Medicine; Visit Provider Internal Medicine
DX: Z13.6 Encounter for screening for cardiovascular disorders (principal); Z82.49 Family history of ischemic heart disease and other diseases of the circulatory system
CPT/HCPCS: 71275; Q9967